=== PATIENT | female | born 1985 | race Caucasian/White ===

== ENCOUNTER 2020-08-08 20:01 | Emergency (ER) | payer OTHER, SELFPAY ==
[2020-08-08 20:05] VITALS: BP 165/79; PULSE 99; RESP 18; TEMP 36.7; O2SAT 100; BMI 49.3
[2020-08-08 20:30] LABS: RBC Urine 0-1/HPF (0-5/HPF); Squamous Epithelial Cell Urine 1-5 /HPF (0-5/HPF); WBC Urine 5-10/HPF (0-5/HPF)
[2020-08-08 20:31] LABS: Amorphous Sediment Urine 1+; Bacteria Urine Few (2-10); Culture Indicated Urine Specimen Cultured
--- NOTE | 2020-08-08 20:31 | ED.ABDPAIN ---
HPI - Abdominal Pain General Chief Complaint: Abdominal Pain Stated Complaint: ABD PAIN Time Seen by Provider: 08/08/20 20:03 Source: patient Mode of arrival: Ambulatory Limitations: no limitations History of Present Illness HPI narrative: 34-year-old female nonsmoker presents with a chief complaint of any weeks, if not months of upper abdominal pain. She denies any provocation, palliation or radiation. She states that she has episodes multiple times daily and which she can feel and see spasming and hardening of her upper abdomen which is associated with pain and some nausea. She states it is worse today. She is not dizzy nor weak or lightheaded. She denies any fever or chills. She has had no nausea, vomiting or diarrhea. She denies any relationship with eating or drinking. Her last menstrual period was prior to miscarriage a few months ago, she states she has not had a normal cycle since. She denies any vaginal bleeding, discharge, dysuria, frequency or urgency. MD complaint: abdominal pain Onset (ago): month(s) Pain Consistency: intermittent Location: periumbilical Severity: moderate Severity scale (1-10): 8 Quality: cramping Radiation: epigastric Migration to: no migration Relieving factors: nothing Exacerbating factors: nothing Associated symptoms: denies other symptoms Related Data Allergies Allergy/AdvReac Type Severity Reaction Status Date / Time No Known Drug Allergies Allergy Verified 08/08/20 20:17 Review of Systems Constitutional Constitutional: Denies chills, Denies fatigue, Denies fever(s), Denies frequent falls, Denies lethargy and Denies weakness Eyes Eyes: Denies change in vision, Denies eye discharge, Denies irritation and Denies loss of vision ENT Ears, Nose, Mouth, and Throat: Denies change in voice, Denies dizziness, Denies neck pain, Denies sore throat and Denies throat swelling Cardiovascular Cardiovascular: Denies chest pain, Denies irregular heart rhythm, Denies lightheadedness, Denies palpitations, Denies dyspnea, Denies dyspnea on exertion and Denies orthopnea Respiratory Respiratory: Denies cough, Denies dyspnea, Denies dyspnea on exertion and Denies wheezing Gastrointestinal Gastrointestinal: Reports abdominal pain, Denies change in bowel habits, Denies diarrhea, Denies nausea and Denies vomiting Musculoskeletal Musculoskeletal: Denies neck pain and Denies numbness Integumentary/Breasts Skin/Breast: Denies pruritus, Denies erythema, Denies rash and Denies wounds Neurologic Neurologic: Denies behavioral changes, Denies confusion, Denies dizziness, Denies frequent falls, Denies loss of vision, Denies numbness and Denies weakness Psychiatric Psychiatric: Denies anxiety, Denies behavioral changes, Denies confusion, Denies depression, Denies homicidal ideation and Denies suicidal ideation Endocrine Endocrine: Denies fatigue, Denies flushing and Denies palpitations Hematologic/Lymphatic Hematologic/Lymphatic: Denies easy bruising Allergic/Immunologic Allergic/Immunologic: Denies urticaria, Denies throat swelling and Denies wheezing Patient History Social History Smoking Status: Never smoker Smoking Status: Never smoker alcohol intake frequency: 0-2 drinks per day Substance Use Type: does not use Exam Narrative Exam Narrative: GENERAL: [34] year old patient appears stated age. Well-nourished, well-developed patient, in mild distress. HEAD: Atraumatic. Normocephalic. EYES: Pupils equal round and reactive. Extraocular motions intact. No scleral icterus. No injection or drainage. ENT: Nose without bleeding, purulent drainage. Throat without erythema, tonsillar hypertrophy or exudate. Airway patent. NECK: Trachea midline. Non tender CARDIOVASCULAR: Regular rate and rhythm without murmurs, gallops, or rubs. RESPIRATORY: Clear to auscultation. Breath sounds equal bilaterally. No wheezes, rales, or rhonchi. GASTROINTESTINAL: Abdomen soft, non-tender, nondistended. EXTREMITIES: No edema or joint tenderness. BACK: Nontender without deformity or crepitance. No flank tenderness. NEURO: AOx3. SKIN: No rash or erythema of visible areas Initial Vital Signs Initial Vital Signs: Vital Signs Temperature 98.1 F 08/08/20 20:05 Pulse Rate 99 H 08/08/20 20:05 Respiratory Rate 18 08/08/20 20:05 Blood Pressure 165/79 H 08/08/20 20:05 Pulse Oximetry 100 08/08/20 20:05 Course Course Course Narrative: while discussing discharge paperwork patient states it happens with eating and drinking, which is in contrast with what she had said originally. This raises terri suspiscion of esophageal spasm or GERD and the like. I added discussion about this to my paperwork. Other diagnoses such as biliary disease, pancreatitis, bowel obstruction and other were considered, but thought unlikely given lack of findings on labs or imaging. REturn precautions given and questions have been answered to her apparent satisfaction Orders Ordered: ED Orders 08/08/20 19:14 Urine Culture Stat Urine Microscopic Stat 08/08/20 20:50 Complete Blood Count AUTO DIFF Stat Test Serum,Qual Stat 08/08/20 21:15 Comprehensive Metabolic Panel Stat 08/08/20 21:28 CT abdomen pelvis w con Stat Discontinued Medications Acetaminophen (Acetaminophen 325 Mg Tablet) 650 mg PO NOW ONE Stop: 08/08/20 22:54 Last Admin: 08/08/20 22:56 Dose: 650 mg Documented by: GEORGIANA Hydrocodone Bitart/Acetaminophen (Hydrocodone/Acet 5/325 Prepack) 1 bottle MISC SEEINSTR ONE Stop: 08/08/20 23:39 Last Admin: 08/08/20 23:47 Dose: 1 bottle Documented by: GEORGIANA Sodium Chloride (Normal Saline 0.9%) 1,000 mls @ 1,000 mls/hr IV BOLUS ONE Stop: 08/08/20 21:14 Last Infusion: 08/08/20 21:52 Dose: 0 mls/hr Documented by: Admin: 08/08/20 20:56 Dose: 1,000 mls/hr Documented by: GILLIAN Ondansetron HCl (Ondansetron 4 Mg Odt Prepack) 1 bottle MISC SEEINSTR ONE Stop: 08/08/20 23:39 Last Admin: 08/08/20 23:47 Dose: 1 bottle Documented by: GEORGIANA Pantoprazole Sodium (Pantoprazole 40 Mg Vial) 40 mg IV NOW ONE Stop: 08/08/20 20:16 Last Admin: 08/08/20 20:56 Dose: 40 mg Documented by: GILLIAN Vital Signs Vital signs: Vital Signs - 8 hr 08/08/20 20:05 08/08/20 23:55 Temperature 98.1 F 98 F Pulse Rate 99 H 78 Respiratory Rate 18 18 Blood Pressure 165/79 H 130/76 Pulse Oximetry 100 98 MDM - Abdominal Pain Lab Data Result diagrams: 08/08/20 20:50 08/08/20 21:15 Labs: Lab Results 08/08/20 08/08/2021 Range/Units 19:14 20:50 20:50 WBC 15.5 H (4.5-11.0) X10^3/uL RBC 5.03 (4.0-5.2) X10^6/uL Hgb 14.0 (12.0-16.0) g/dL Hct 42.2 (36-46) % MCV 84.0 (80-100) fL MCH 27.9 (26-34) PG MCHC 33.2 (30-36) % RDW 15.1 H (11.6-14.8) % Plt Count 298 (150-400) X10^3/uL Neut % (Auto) 62.1 (50-75) % Lymph % (Auto) 29.5 (25-40) % [place] % (Auto) 6.9 (3-14) % Eos % (Auto) 1.0 L (2-4) % Baso % (Auto) 0.5 (0-2) % Neut # (Auto) 9700 H (8911-9726) /uL Lymph # (Auto) 4600 H (5145-9564) /uL [place] # (Auto) 1100 H (0-900) /uL Eos # (Auto) 200 (0-450) /uL Baso # (Auto) 100 (0-100) /uL Sodium (137-145) mmol/L Potassium (3.4-5.1) mmol/L Chloride (98-107) mmol/L Carbon Dioxide (22-32) mmol/L BUN (7-17) mg/dL Creatinine (0.52-1.04) mg/dL Estimated GFR (>60) mL/min BUN/Creatinine Ratio (6-22) Glucose (70-100) mg/dL Calcium (8.4-10.2) mg/dL Total Bilirubin (0.2-1.3) mg/dL AST (14-36) IU/L ALT (<35) IU/L Alkaline Phosphatase (38-126) U/L Total Protein (6.3-8.2) g/dL Albumin (3.5-5.0) g/dL Globulin (1.7-4.1) g/dL Albumin/Globulin Ratio (1.0-2.8) Serum , Qual Negative (Negative) Urine RBC 0-1/hpf (0-5/HPF) Urine WBC 5-10/hpf H (0-5/HPF) Ur Squamous Epith Cells 1-5 /hpf (0-5/HPF) Amorphous Sediment 1+ Urine Bacteria Few (2-10) H (None) Ur Culture Indicated? Specimen cultured 08/08/20 Range/Units 21:15 WBC (4.5-11.0) X10^3/uL RBC (4.0-5.2) X10^6/uL Hgb (12.0-16.0) g/dL Hct (36-46) % MCV (80-100) fL MCH (26-34) PG MCHC (30-36) % RDW (11.6-14.8) % Plt Count (150-400) X10^3/uL Neut % (Auto) (50-75) % Lymph % (Auto) (25-40) % [place] % (Auto) (3-14) % Eos % (Auto) (2-4) % Baso % (Auto) (0-2) % Neut # (Auto) (2244-6749) /uL Lymph # (Auto) (9864-9608) /uL [place] # (Auto) (0-900) /uL Eos # (Auto) (0-450) /uL Baso # (Auto) (0-100) /uL Sodium 138 (137-145) mmol/L Potassium 4.7 (3.4-5.1) mmol/L Chloride 103 (98-107) mmol/L Carbon Dioxide 32 (22-32) mmol/L BUN 13 (7-17) mg/dL Creatinine 0.59 (0.52-1.04) mg/dL Estimated GFR > 60.0 (>60) mL/min BUN/Creatinine Ratio 22.0 (6-22) Glucose 105 H (70-100) mg/dL Calcium 10.1 (8.4-10.2) mg/dL Total Bilirubin 0.4 (0.2-1.3) mg/dL AST 30 (14-36) IU/L ALT 30 (<35) IU/L Alkaline Phosphatase 82 (38-126) U/L Total Protein 8.4 H (6.3-8.2) g/dL Albumin 4.3 (3.5-5.0) g/dL Globulin 4.1 (1.7-4.1) g/dL Albumin/Globulin Ratio 1.0 (1.0-2.8) Serum , Qual (Negative) Urine RBC (0-5/HPF) Urine WBC (0-5/HPF) Ur Squamous Epith Cells (0-5/HPF) Amorphous Sediment Urine Bacteria (None) Ur Culture Indicated? Point of care testing: Point of Care Testing Test Results Negative Urine Dip Bedside Urine Glucose Negative Bedside Urine Bilirubin - Negative Bedside Urine Ketone - Negative Urine Specific [place] 1.015 Bedside Urine Occult Blood + Bedside Urine pH 6.0 Bedside Urine Protein - Negative Bedside Urine Urobilinogen - Negative Bedside Urine Nitrite - Negative Bedside Urine Leukocytes - Negative Esterase Imaging Data CT scan - abdomen/pelvis: Radiologist's Impression: No acute intraabdominal or pelvic findings. No bowel obstruction. No renal obstruction Discharge Plan Departure Patient Disposition: Home Clinical Impression: Acute epigastric pain Instructions: DI for Epigastric Pain Activity Restrictions/Additional Instructions: *You have been diagnosed with [epigastric pain. He did have a slight bump in your white blood cell count but remaining labs are reassuring. Imaging demonstrated no significant findings. The pain in association with eating and drinking raises question about problems with her esophagus such as spasm or reflux.] *What to do: *Take me: [id number] antacid such as Protonix or Nexium dications as directed *Follow up with your primary care provider in 2-3 days, call for an appointment. Let them know you were seen in the Emergency Department and that we ask that you be seen in follow up *Return to ER if you should have any new, worsening or concerning symptoms, such as [increased pain, persistent vomiting, fever over 101 F or other bothersome symptoms] Referrals: Chiquita Espinosa ARNP [Primary Care Provider] -
[2020-08-08] MEDS: SODIUM CHLORIDE 0.9% 1,000 ML 1000 ML IV (20:56)
[2020-08-08] MEDS: PANTOPRAZOLE 40 MG VIAL IV (20:56)
[2020-08-08 20:58] LABS: Add Manual Diff / Slide Review NO; Basophils Absolute Auto 100 /uL (0-100); Basophils Percent Auto 0.5 % (0-2); Eosinophils Absolute Auto 200 /uL (0-450); Hematocrit 42.2 % (36-46); Lymphocytes Absolute Auto 4600 /uL (1100-4500); Lymphocytes Percent Auto 29.5 % (25-40); Mean Corpuscular HGB Conc 33.2 % (30-36); Mean Corpuscular Hemoglobin 27.9 PG (26-34); Monocytes Absolute Auto 1100 /uL (0-900); Monocytes Percent Auto 6.9 % (3-14); Neutrophils Absolute Auto 9700 /uL (1500-7000); Neutrophils Percent Auto 62.1 % (50-75); Platelet Count 298 X10^3/uL (150-400); Red Blood Cell Count 5.03 X10^6/uL (4.0-5.2); Red Cell Distribution Width 15.1 % (11.6-14.8); White Blood Cell Count 15.5 X10^3/uL (4.5-11.0)
[2020-08-08 21:16] LABS: Pregnancy Test Serum,Qual Negative (Negative)
--- NOTE | 2020-08-08 21:28 | DI.CT.S_ITS ---
PROCEDURE: CT ABDOMEN PELVIS W CON INDICATIONS: severe upper abdominal pain, leukocytosis TECHNIQUE: After the administration of oral and intravenous contrast, 5 mm thick sections acquired from the diaphragms to the symphysis. 5 mm thick coronal and sagittal reformats were performed. For radiation dose reduction, the following was used: automated exposure control, adjustment of mA and/or kV according to patient size. COMPARISON: None. FINDINGS: Image quality: Excellent. ABDOMEN: Lung bases: Lung bases are clear. Heart size is normal. Tiny hiatal hernia. Solid organs: There is hepatic steatosis. Liver is normal in size and enhancement. Gallbladder is surgically absent. Biliary system is non-dilated. Pancreas enhances normally. Spleen is normal in size and enhancement. No adrenal nodules. Kidneys are normal in size and enhancement, without hydronephrosis. Peritoneum and bowel: Stomach, small bowel, and colon loops are normal in caliber and wall thickness. Normal appendix. A few colonic diverticula are present. No diverticulitis. No free fluid or air. Nodes and vessels: No retroperitoneal or mesenteric adenopathy. Aorta and inferior vena cava are normal in caliber. Miscellaneous: A small fat containing umbilical hernia is noted. In addition, there is a small fat containing ventral hernia at midline in the pre pubic area. PELVIS: Genitourinary: Bladder wall thickness is normal. Uterus and ovaries are normal. No free-fluid in pelvis. Miscellaneous: No inguinal hernias or adenopathy. Bones: No suspicious bony lesions. No vertebral body compression fractures. IMPRESSION: 1. No acute abnormalities in abdomen or pelvis. No significant discrepancy with the shift coordinator radiology preliminary report. Dictated by: Toro Anderson M.D. on 08/09/2020 at 8:22 Approved by: Toro Anderson M.D. on 08/09/2020 at 8:27
[2020-08-08 21:37] LABS: Alanine Aminotransferase 30 IU/L (<35); Albumin 4.3 g/dL (3.5-5.0); Alkaline Phosphatase 82 U/L (38-126); Aspartate Aminotransferase 30 IU/L (14-36); Bilirubin Total 0.4 mg/dL (0.2-1.3); Blood Urea Nitrogen 13 mg/dL (7-17); Calcium 10.1 mg/dL (8.4-10.2); Carbon Dioxide 32 mmol/L (22-32); Chloride 103 mmol/L (98-107); Estimated Glomerular Filt Rate > 60.0 mL/min (>60); Globulin 4.1 g/dL (1.7-4.1); Glucose 105 mg/dL (70-100); Sodium 138 mmol/L (137-145); Total Protein 8.4 g/dL (6.3-8.2)
[2020-08-08 21:40] LABS: HEMOLYSIS 83 (0-50)
[2020-08-08 21:41] LABS: Potassium 4.7 mmol/L (3.4-5.1)
[2020-08-08] MEDS: ACETAMINOPHEN 325 MG TABLET 650 MG PO (22:56)
[2020-08-08] MEDS: ONDANSETRON 4 MG ODT PREPACK 1 BOTTLE MISC (23:47)
[2020-08-08] MEDS: HYDROCODONE/ACET 5/325 PREPACK 1 BOTTLE MISC (23:47)
[2020-08-08 23:55] VITALS: BP 130/76; PULSE 78; RESP 18; TEMP 36.6; O2SAT 98
== END 2020-08-08 23:56 | disposition home or self-care (01) ==
PROVIDERS: Emergency Provider Emergency Medicine; PCP Nurse Practitioner Family
DX: R10.13 Epigastric pain (principal); D72.829 Elevated white blood cell count, unspecified
CPT/HCPCS: 36415; 74177; 80053; 81003; 81015; 81025; 84703; 85025; 87086; 96361; 96374; 99284; C9113; Q9967

== ENCOUNTER 2020-09-11 03:36 | Emergency (ER) | payer OTHER, SELFPAY ==
--- NOTE | 2020-09-11 03:38 | ED.FEMALEGU ---
HPI - Female Genitourinary General Chief complaint: Urogenital-Female Stated complaint: Blood in urine Time Seen by Provider: 09/11/20 03:37 Source: patient and family Mode of arrival: Ambulatory Limitations: no limitations History of Present Illness HPI Narrative: 35-year-old female nonsmoker without any significant medical history presents with her in the chief complaint of urinary frequency, urgency, burning and hematuria over the course of the day. She denies any nausea or vomiting. She denies any fever or shaking chills. She denies any chest pain or shortness of breath. She does have some discomfort that radiates around her left side and complains only of provocation with urination. MD Complaint: dysuria and UTI Onset (ago): hour(s) Female Urogenital Radiation: L Flank Severity: mild Quality: Aching and Burning Relieving factors: none Exacerbating factors: urination Urinary symptoms: Difficulty Urinating, Dysuria, Flank Pain, Hematuria and Urgency Patient : No Associated symptoms: denies other symptoms Related Data Previous Rx's Medication Instructions Recorded sulfamethoxazole-trimethoprim 1 tab PO BID 10 Days #20 tab 09/11/20 [Bactrim DS] Allergies Allergy/AdvReac Type Severity Reaction Status Date / Time No Known Drug Allergies Allergy Verified 08/08/20 20:17 Review of Systems Constitutional Constitutional: Denies chills, Denies fatigue, Denies fever(s), Denies frequent falls, Denies lethargy and Denies weakness Eyes Eyes: Denies change in vision, Denies eye discharge, Denies irritation and Denies loss of vision ENT Ears, Nose, Mouth, and Throat: Denies change in voice, Denies dizziness, Denies neck pain, Denies sore throat and Denies throat swelling Cardiovascular Cardiovascular: Denies chest pain, Denies irregular heart rhythm, Denies lightheadedness, Denies palpitations, Denies dyspnea, Denies dyspnea on exertion and Denies orthopnea Respiratory Respiratory: Denies cough, Denies dyspnea, Denies dyspnea on exertion and Denies wheezing Gastrointestinal Gastrointestinal: Denies abdominal pain, Denies change in bowel habits, Denies diarrhea, Denies nausea and Denies vomiting Genitourinary Genitourinary: Reports dysuria, Reports flank pain and Reports urinary urgency Genitourinary: Reports dysuria, Reports flank pain and Reports urinary urgency Musculoskeletal Musculoskeletal: Denies neck pain and Denies numbness Integumentary/Breasts Skin/Breast: Denies pruritus, Denies erythema, Denies rash and Denies wounds Neurologic Neurologic: Denies behavioral changes, Denies confusion, Denies dizziness, Denies frequent falls, Denies loss of vision, Denies numbness and Denies weakness Psychiatric Psychiatric: Denies anxiety, Denies behavioral changes, Denies confusion, Denies depression, Denies homicidal ideation and Denies suicidal ideation Endocrine Endocrine: Denies fatigue, Denies flushing and Denies palpitations Hematologic/Lymphatic Hematologic/Lymphatic: Denies easy bruising Allergic/Immunologic Allergic/Immunologic: Denies urticaria, Denies throat swelling and Denies wheezing Patient History alcohol intake frequency: 0-2 drinks per day Substance Use Type: does not use Exam Narrative Exam Narrative: GENERAL: [35] year old patient appears stated age. Well-nourished, well-developed patient, in mild distress. Resting comfortably HEAD: Atraumatic. Normocephalic. EYES: Pupils equal round and reactive. Extraocular motions intact. No scleral icterus. No injection or drainage. ENT: Nose without bleeding, purulent drainage. Throat without erythema, tonsillar hypertrophy or exudate. Airway patent. NECK: Trachea midline. Non tender CARDIOVASCULAR: Regular rate and rhythm without murmurs, gallops, or rubs. RESPIRATORY: Clear to auscultation. Breath sounds equal bilaterally. No wheezes, rales, or rhonchi. GASTROINTESTINAL: Abdomen soft, minimal suprapubic tenderness, nondistended. EXTREMITIES: No edema or joint tenderness. BACK: Nontender without deformity or crepitance. No flank tenderness. NEURO: AOx3. SKIN: No rash or erythema of visible areas Initial Vital Signs Initial Vital Signs: Vital Signs Temperature 98.2 F 09/11/20 03:46 Pulse Rate 99 H 09/11/20 03:46 Respiratory Rate 17 09/11/20 03:46 Blood Pressure 168/90 H 09/11/20 03:46 Pulse Oximetry 100 09/11/20 03:46 Course Orders Ordered: ED Orders 09/11/20 03:45 Urine Culture Stat Urine Microscopic Stat Discontinued Medications Phenazopyridine HCl (Phenazopyridine 100 Mg Prepack) 1 bottle MISC SEEINSTR ONE Stop: 09/11/20 04:04 Last Admin: 09/11/20 04:07 Dose: 1 bottle Documented by: Trimethoprim/Sulfamethoxazole (Trimeth/Sulfa 160/800 (Ds) Tablet) 1 tab PO NOW ONE Stop: 09/11/20 04:04 Last Admin: 09/11/20 04:07 Dose: 1 tab Documented by: Vital Signs Vital signs: Vital Signs - 8 hr 09/11/20 03:46 Temperature 98.2 F Pulse Rate 99 H Respiratory Rate 17 Blood Pressure 168/90 H Pulse Oximetry 100 MDM - Female Genitourinary Lab Data Labs: Lab Results 09/11/20 Range/Units 03:45 Urine RBC >100/hpf H (0-5/HPF) Urine WBC 5-10/hpf H (0-5/HPF) Ur Squamous Epith Cells 0-1 /hpf (0-5/HPF) Urine Bacteria Few (2-10) H (None) Ur Culture Indicated? Specimen cultured Point of Care Testing Test Results Negative Urine Dip Bedside Urine Glucose Negative Bedside Urine Bilirubin - Negative Bedside Urine Ketone - Negative Urine Specific [place] 1.015 Bedside Urine Occult Blood +++ Bedside Urine pH 6.0 Bedside Urine Protein + 30 Bedside Urine Urobilinogen - Negative Bedside Urine Nitrite - Negative Bedside Urine Leukocytes + 70 Esterase MDM Narrative Medical decision making narrative: Patient with classic UTI symptoms including dysuria, frequency, urgency and hematuria with suprapubic tenderness and minimal radiation around her left side. She denies any colicky nature of her symptoms or severe pain to suggest kidney stone. She is not septic, she is tolerating oral without difficulty and resting comfortably. She has been given return precautions and at questions answered to her apparent satisfaction Discharge Plan Departure Patient Disposition: Home Clinical Impression: Urinary tract infection Qualifiers: Urinary tract infection type: acute pyelonephritis Qualified Code(s): N10 - Acute pyelonephritis Instructions: DI for Kidney Infection Activity Restrictions/Additional Instructions: *You have been diagnosed with [blood in the urine, most likely due to infection] *What to do: *Take medications as directed *Follow up with your primary care provider in 2-3 days, call for an appointment. Let them know you were seen in the Emergency Department and that we ask that you be seen in follow up *Return to ER if you should have any new, worsening or concerning symptoms, such as [increasing, more persistent pain, vomiting, shaking chills or other bothersome symptoms] Prescriptions: New sulfamethoxazole-trimethoprim [Bactrim DS] 800-160 mg tablet 1 tab PO BID 10 Days Qty: 20 RF: 0 Referrals: Chiquita Espinosa ARNP [Primary Care Provider] -
[2020-09-11 03:46] VITALS: BP 168/90; PULSE 99; RESP 17; TEMP 36.8; O2SAT 100; BMI 50.3
[2020-09-11 04:00] LABS: Bacteria Urine Few (2-10); RBC Urine >100/HPF (0-5/HPF); Squamous Epithelial Cell Urine 0-1 /HPF (0-5/HPF)
[2020-09-11 04:01] LABS: WBC Urine 5-10/HPF (0-5/HPF)
[2020-09-11 04:02] LABS: Culture Indicated Urine Specimen Cultured
[2020-09-11] MEDS: PHENAZOPYRIDINE 100 MG PREPACK 1 BOTTLE MISC (04:07)
[2020-09-11] MEDS: TRIMETH/SULFA 160/800 (DS) TABLET 1 TAB PO (04:07)
[2020-09-11 04:29] VITALS: BP 130/80; PULSE 87; RESP 18; O2SAT 99
== END 2020-09-11 04:30 | disposition home or self-care (01) ==
PROVIDERS: Emergency Provider Emergency Medicine; PCP Nurse Practitioner Family
DX: N10 Acute pyelonephritis (principal)
CPT/HCPCS: 81003; 81015; 81025; 87086; 99283

== ENCOUNTER 2020-09-16 18:28 | Emergency (ER) | payer OTHER, SELFPAY ==
--- NOTE | 2020-09-16 19:40 | ED.MALEGU ---
HPI - Male Genitourinary General Chief complaint: Urogenital-Female Stated complaint: PEEING BLOOD SIDE PAIN TO BACK Time Seen by Provider: 09/16/20 18:33 Source: patient and family Mode of arrival: Ambulatory Limitations: no limitations History of Present Illness HPI Narrative: 35-year-old female nonsmoker with history of chronic epigastric pain presents with her in the chief complaint of worsening dysuria, frequency, urgency now with hematuria and radiation to her right upper back. She was seen and evaluated by myself a few days ago and had classic UTI symptoms and was found to have a urinary tract infection and was started on Bactrim. She has been taking the medications as directed and presents tonight under the above-stated scenario. She denies any fever or chills. She has had no nausea, vomiting or diarrhea. She denies runny nose, sore throat or cough. She had no chest pain or shortness of breath. Related Data Previous Rx's Medication Instructions Recorded sulfamethoxazole-trimethoprim 1 tab PO BID 10 Days #20 tab 09/11/20 [Bactrim DS] cefpodoxime 200 mg PO BID 10 Days #20 tab 09/16/20 hydrocodone-acetaminophen 1 tab PO Q4-6H PRN #10 tab 09/16/20 ondansetron 4 mg PO TID-QID PRN #10 tab 09/16/20 Allergies Allergy/AdvReac Type Severity Reaction Status Date / Time No Known Drug Allergies Allergy Verified 08/08/20 20:17 Review of Systems Constitutional Constitutional: Denies chills, Denies fatigue, Denies fever(s), Denies frequent falls, Denies lethargy and Denies weakness Eyes Eyes: Denies change in vision, Denies eye discharge, Denies irritation and Denies loss of vision ENT Ears, Nose, Mouth, and Throat: Denies change in voice, Denies dizziness, Denies neck pain, Denies sore throat and Denies throat swelling Cardiovascular Cardiovascular: Denies chest pain, Denies irregular heart rhythm, Denies lightheadedness, Denies palpitations, Denies dyspnea, Denies dyspnea on exertion and Denies orthopnea Respiratory Respiratory: Denies cough, Denies dyspnea, Denies dyspnea on exertion and Denies wheezing Gastrointestinal Gastrointestinal: Denies abdominal pain, Denies change in bowel habits, Denies diarrhea, Denies nausea and Denies vomiting Genitourinary Genitourinary: Reports dysuria Genitourinary: Reports difficulty voiding and Reports dysuria Musculoskeletal Musculoskeletal: Denies neck pain and Denies numbness Integumentary/Breasts Skin/Breast: Denies pruritus, Denies erythema, Denies rash and Denies wounds Neurologic Neurologic: Denies behavioral changes, Denies confusion, Denies dizziness, Denies frequent falls, Denies loss of vision, Denies numbness and Denies weakness Psychiatric Psychiatric: Denies anxiety, Denies behavioral changes, Denies confusion, Denies depression, Denies homicidal ideation and Denies suicidal ideation Endocrine Endocrine: Denies fatigue, Denies flushing and Denies palpitations Hematologic/Lymphatic Hematologic/Lymphatic: Denies easy bruising Allergic/Immunologic Allergic/Immunologic: Denies urticaria, Denies throat swelling and Denies wheezing Patient History Social History Smoking Status: Never smoker Smoking Status: Never smoker alcohol intake frequency: 0-2 drinks per day Substance Use Type: does not use Exam Narrative Exam Narrative: GENERAL: [35] year old patient appears stated age. Well-nourished, well-developed patient, in mild distress. Tearful HEAD: Atraumatic. Normocephalic. EYES: Pupils equal round and reactive. Extraocular motions intact. No scleral icterus. No injection or drainage. ENT: Nose without bleeding, purulent drainage. Throat without erythema, tonsillar hypertrophy or exudate. Airway patent. NECK: Trachea midline. Non tender CARDIOVASCULAR: Regular rate and rhythm without murmurs, gallops, or rubs. RESPIRATORY: Clear to auscultation. Breath sounds equal bilaterally. No wheezes, rales, or rhonchi. GASTROINTESTINAL: Abdomen soft, mild suprapubic pain, nondistended. EXTREMITIES: No edema or joint tenderness. BACK: Nontender without deformity or crepitance. Right CVA tenderness NEURO: AOx3. SKIN: No rash or erythema of visible areas Initial Vital Signs Initial Vital Signs: Vital Signs Temperature 98.1 F 09/16/20 19:47 Pulse Rate 82 09/16/20 19:47 Respiratory Rate 18 09/16/20 19:47 Blood Pressure 166/94 H 09/16/20 19:47 Pulse Oximetry 100 09/16/20 19:47 Course Orders Ordered: ED Orders 09/16/20 21:18 Complete Blood Count AUTO DIFF Stat Comprehensive Metabolic Panel Stat 09/16/20 21:26 US renal complete Stat 09/16/20 21:35 Blood Culture Stat Discontinued Medications Hydrocodone Bitart/Acetaminophen (Hydrocodone/Acet 5/325 Prepack) 1 bottle MISC SEEINSTR ONE Stop: 09/16/20 23:02 Last Admin: 09/16/20 23:07 Dose: 1 bottle Documented by: ELIZABETH Sodium Chloride (Normal Saline 0.9%) 1,000 mls @ 1,000 mls/hr IV BOLUS ONE Stop: 09/16/20 21:50 Last Infusion: 09/16/20 23:12 Dose: 0 mls/hr Documented by: Admin: 09/16/20 21:22 Dose: 1,000 mls/hr Documented by: ELIZABETH Ceftriaxone Sodium/Dextrose (Rocephin) 1 gm in 50 mls @ 100 mls/hr IV NOW ONE Stop: 09/16/20 21:56 Last Infusion: 09/16/20 23:12 Dose: 0 mls/hr Documented by: Admin: 09/16/20 21:30 Dose: 100 mls/hr Documented by: ELIZABETH Ondansetron HCl (Ondansetron 4 Mg Odt Prepack) 1 bottle MISC SEEINSTR ONE Stop: 09/16/20 23:02 Last Admin: 09/16/20 23:07 Dose: 1 bottle Documented by: ELIZABETH Phenazopyridine HCl (Phenazopyridine 100 Mg Prepack) 1 bottle MISC SEEINSTR ONE Stop: 09/16/20 23:19 Last Admin: 09/16/20 23:24 Dose: 1 bottle Documented by: ELIZABETH Vital Signs Vital signs: Vital Signs - 8 hr 09/16/20 22:50 09/16/20 22:51 Pulse Rate 84 84 Blood Pressure 119/68 Pulse Oximetry 99 98 MDM - Male Genitourinary Lab Data Result diagrams: 09/16/20 21:18 09/16/20 21:18 Labs: Lab Results 09/16/20 09/16/20 09/16/20 Range/Units 19:56 21:18 21:18 WBC 13.9 H (4.5-11.0) X10^3/uL RBC 4.40 (4.0-5.2) X10^6/uL Hgb 12.4 (12.0-16.0) g/dL Hct 36.7 (36-46) % MCV 83.3 (80-100) fL MCH 28.3 (26-34) PG MCHC 33.9 (30-36) % RDW 14.7 (11.6-14.8) % Plt Count 300 (150-400) X10^3/uL Neut % (Auto) 65.2 (50-75) % Lymph % (Auto) 25.9 (25-40) % [place] % (Auto) 6.7 (3-14) % Eos % (Auto) 1.1 L (2-4) % Baso % (Auto) 1.1 (0-2) % Neut # (Auto) 9100 H (9331-3909) /uL Lymph # (Auto) 3600 (2076-1647) /uL [place] # (Auto) 900 (0-900) /uL Eos # (Auto) 200 (0-450) /uL Baso # (Auto) 200 H (0-100) /uL Sodium 139 (137-145) mmol/L Potassium 3.9 (3.4-5.1) mmol/L Chloride 105 (98-107) mmol/L Carbon Dioxide 27 (22-32) mmol/L BUN 13 (7-17) mg/dL Creatinine 0.71 (0.52-1.04) mg/dL Estimated GFR > 60.0 (>60) mL/min BUN/Creatinine Ratio 18.3 (6-22) Glucose 104 H (70-100) mg/dL Calcium 9.6 (8.4-10.2) mg/dL Total Bilirubin 0.2 (0.2-1.3) mg/dL AST 30 (14-36) IU/L ALT 35 H (<35) IU/L Alkaline Phosphatase 85 (38-126) U/L Total Protein 7.6 (6.3-8.2) g/dL Albumin 4.1 (3.5-5.0) g/dL Globulin 3.5 (1.7-4.1) g/dL Albumin/Globulin Ratio 1.2 (1.0-2.8) Urine Color Yellow Urine Appearance Sl cloudy Urine pH 7.0 (4.5-8.0) Ur Specific [place] 1.015 (1.000-1.035) Urine Protein Negative (Negative) Urine Glucose (UA) Negative (Negative) g/dL Urine Ketones Negative (NEGATIVE) Urine Occult Blood 1+ H (Negative) Urine Nitrate Negative (Negative) Urine Bilirubin Negative (NEGATIVE) Urine Urobilinogen 0.2 (0.2) E.U./dL Ur Leukocyte Esterase 2+ H (NEGATIVE) Urine RBC 1-5/hpf D (0-5/HPF) Urine WBC 30-100/hpf H (0-5/HPF) Ur Squamous Epith Cells 1-5 /hpf (0-5/HPF) Amorphous Sediment 1+ Urine Bacteria Few (2-10) H (None) Ur Culture Indicated? Specimen cultured Imaging Data Renal US: Radiologist's Impression: No [place] or other abnormal findings MDM Narrative Medical decision making narrative: Patient is not septic, discomfort is well controlled. No evidence of obstructive stone based on ultrasound. Patient is given Rocephin here and antibiotic is changed. She is given extensive return precautions and has had questions answered to her apparent satisfaction Discharge Plan Departure Patient Disposition: Home Clinical Impression: Pyelonephritis Instructions: DI for Kidney Infection Activity Restrictions/Additional Instructions: *You have been diagnosed with [right-sided kidney infection] *What to do: *Take medications as directed: Please stop these sulfamethoxazole trimethoprim (Bactrim) that your given the other day. I've written a new antibiotic as the other clearly wasn't working. Other prescriptions were sent to [facility] in [place] *Follow up with your primary care provider in 2-3 days, call for an appointment. Let them know you were seen in the Emergency Department and that we ask that you be seen in follow up *Return to ER if you should have any new, worsening or concerning symptoms Prescriptions: New cefpodoxime 200 mg tablet 200 mg PO BID 10 Days Qty: 20 RF: 0 hydrocodone-acetaminophen 5-325 mg tablet 1 tab PO Q4-6H PRN (Reason: pain) Qty: 10 RF: 0 ondansetron 4 mg tablet,disintegrating 4 mg PO TID-QID PRN (Reason: nausea and vomiting) Qty: 10 RF: 0 No Action sulfamethoxazole-trimethoprim [Bactrim DS] 800-160 mg tablet 1 tab PO BID 10 Days Qty: 20 RF: 0 Referrals: Loura,Jose, MD [Physician] - Chiquita Espinosa ARNP [Primary Care Provider] -
[2020-09-16 19:47] VITALS: BP 166/94; PULSE 82; RESP 18; TEMP 36.7; O2SAT 100; BMI 50.3
[2020-09-16 20:09] LABS: Appearance Urine UA SL CLOUDY; Bilirubin Urine UA NEGATIVE (NEGATIVE); Color Urine UA YELLOW; Glucose Urine UA NEGATIVE (Negative); Ketones Urine UA NEGATIVE (NEGATIVE); Leukocyte Esterase Urine UA 2+ (NEGATIVE); Nitrite Urine UA NEGATIVE (Negative); Occult Blood Urine UA 1+ (Negative); Protein Urine UA NEGATIVE (Negative); Specific Gravity Urine UA 1.015 (1.000-1.035); Urobilinogen Urine UA 0.2 E.U./dL (0.2)
[2020-09-16 20:32] LABS: RBC Urine 1-5/HPF (0-5/HPF)
[2020-09-16 20:33] LABS: Amorphous Sediment Urine 1+; Bacteria Urine Few (2-10); Culture Indicated Urine Specimen Cultured; Squamous Epithelial Cell Urine 1-5 /HPF (0-5/HPF); WBC Urine 30-100/HPF (0-5/HPF)
[2020-09-16 20:49] VITALS: PULSE 88; O2SAT 98
[2020-09-16 20:50] VITALS: BP 136/70; O2SAT 99
[2020-09-16] MEDS: SODIUM CHLORIDE 0.9% 1,000 ML 1000 ML IV (21:22)
--- NOTE | 2020-09-16 21:26 | DI.US.S_ITS ---
PROCEDURE: US RENAL COMPLETE INDICATIONS: FLANK PAIN, HEMATURIA TECHNIQUE: Real-time scanning was performed of the kidneys and bladder, with image documentation. COMPARISON: [facility], CT, CT ABDOMEN PELVIS W CON, 08/08/2020, 21:52. FINDINGS: Kidneys: Kidneys are normal in size. Right kidney measures 12.1 cm long; left kidney measures 10.9 cm long. Right renal cortical thickness is 1.5 cm; left renal cortical thickness is 1.2 cm. Renal cortical echotexture is normal. No hydronephrosis or nephrolithiasis. No suspicious solid mass lesions. Bladder: Not distended and poorly evaluated Miscellaneous: No free pelvic fluid. IMPRESSION: Negative for hydronephrosis. No shadowing stones are seen. Decompressed bladder. Note: No significant discrepancy from the preliminary report. Dictated by: Nicko Redd M.D. on 09/17/2020 at 7:44 Approved by: Nicko Redd M.D. on 09/17/2020 at 7:45
[2020-09-16 21:29] LABS: Add Manual Diff / Slide Review NO; Basophils Absolute Auto 200 /uL (0-100); Basophils Percent Auto 1.1 % (0-2); Eosinophils Absolute Auto 200 /uL (0-450); Eosinophils Percent Auto 1.1 % (2-4); Hematocrit 36.7 % (36-46); Hemoglobin 12.4 g/dL (12.0-16.0); Lymphocytes Absolute Auto 3600 /uL (1100-4500); Lymphocytes Percent Auto 25.9 % (25-40); Mean Corpuscular HGB Conc 33.9 % (30-36); Mean Corpuscular Hemoglobin 28.3 PG (26-34); Mean Corpuscular Volume 83.3 fL (80-100); Monocytes Absolute Auto 900 /uL (0-900); Monocytes Percent Auto 6.7 % (3-14); Neutrophils Absolute Auto 9100 /uL (1500-7000); Neutrophils Percent Auto 65.2 % (50-75); Platelet Count 300 X10^3/uL (150-400); Red Cell Distribution Width 14.7 % (11.6-14.8); White Blood Cell Count 13.9 X10^3/uL (4.5-11.0)
[2020-09-16] MEDS: CEFTRIAXONE 1 GM/50 ML FROZ.PIGGY IV (21:30)
[2020-09-16 21:39] LABS: Alanine Aminotransferase 35 IU/L (<35); Albumin 4.1 g/dL (3.5-5.0); Albumin Globulin Ratio 1.2 (1.0-2.8); Alkaline Phosphatase 85 U/L (38-126); Aspartate Aminotransferase 30 IU/L (14-36); BUN Creatinine Ratio 18.3 (6-22); Bilirubin Total 0.2 mg/dL (0.2-1.3); Blood Urea Nitrogen 13 mg/dL (7-17); Calcium 9.6 mg/dL (8.4-10.2); Carbon Dioxide 27 mmol/L (22-32); Chloride 105 mmol/L (98-107); Estimated Glomerular Filt Rate > 60.0 mL/min (>60); Globulin 3.5 g/dL (1.7-4.1); Glucose 104 mg/dL (70-100); HEMOLYSIS < 15 (0-50); Potassium 3.9 mmol/L (3.4-5.1); Sodium 139 mmol/L (137-145); Total Protein 7.6 g/dL (6.3-8.2)
[2020-09-16 22:50] VITALS: PULSE 84; O2SAT 99
[2020-09-16 22:51] VITALS: BP 119/68; PULSE 84; O2SAT 98
[2020-09-16] MEDS: ONDANSETRON 4 MG ODT PREPACK 1 BOTTLE MISC (23:07)
[2020-09-16] MEDS: HYDROCODONE/ACET 5/325 PREPACK 1 BOTTLE MISC (23:07)
[2020-09-16] MEDS: PHENAZOPYRIDINE 100 MG PREPACK 1 BOTTLE MISC (23:24)
== END 2020-09-16 23:42 | disposition home or self-care (01) ==
PROVIDERS: Emergency Provider Emergency Medicine; PCP Nurse Practitioner Family
DX: N12 Tubulo-interstitial nephritis, not specified as acute or chronic (principal)
CPT/HCPCS: 36415; 76770; 80053; 81001; 85025; 87040; 87077; 87086; 87186; 96365; 96366; 99284

== ENCOUNTER 2021-06-16 22:49 | Emergency (ER) | payer OTHER, SELFPAY ==
[2021-06-16 23:00] VITALS: PULSE 81; RESP 26; O2SAT 100
[2021-06-16 23:01] VITALS: BP 159/77; PULSE 83; RESP 18; TEMP 36.8; O2SAT 98; BMI 50.3
[2021-06-16 23:02] VITALS: BP 136/64; PULSE 83; RESP 25; O2SAT 100
--- NOTE | 2021-06-16 23:08 | DI.RAD.S_ITS ---
PROCEDURE: XR CHEST 1V INDICATIONS: chest pain TECHNIQUE: One view of the chest was acquired. COMPARISON: None. FINDINGS: Surgical changes and devices: None. Lungs and pleura: Lungs are clear. No pleural effusions or pneumothorax. Mediastinum: Mediastinal contours appear normal. Heart size is normal. Bones and chest wall: No suspicious bony lesions. Overlying soft tissues appear unremarkable. IMPRESSION: No acute cardiopulmonary pathology. Dictated by: Randy Rader M.D. on 06/16/2021 at 23:46 Approved by: Randy Rader M.D. on 06/16/2021 at 23:46
--- NOTE | 2021-06-16 23:20 | ED.CHESTPAIN ---
HPI - Chest Pain General Chief Complaint: Chest Pain Stated Complaint: Left shoulder/arm numbness/Climara .1mg x1 hour Time Seen by Provider: 06/16/21 23:01 Source: patient Mode of arrival: Ambulatory History of Present Illness HPI narrative: 35F nonsmoker with history of cervical cancer and total hysterectomy and B/L oophorectomy last summer has had a variety of symptoms in the aftermath of the surgery but presents today with her due to a few days of anterior chest heaviness and pressure and some tingling in her left arm. She denies any obvious provocation, palliation or radiation of her chest pressure. She is not short of breath and has had no cough. She denies any fever or chills nor nausea or vomiting. She admits to many months of feeling fatigued and ?foggy?. She does take exogenous estrogens but denies any change in dosing for at least a few weeks. She denies recent travel or history of clot. Related Data Previous Rx's Medication Instructions Recorded hydrocodone 5 mg-acetaminophen 325 1 tab PO Q4-6H PRN #10 tab 09/16/20 mg tablet ondansetron 4 mg disintegrating 4 mg PO TID-QID PRN #10 tab 09/16/20 tablet Allergies Allergy/AdvReac Type Severity Reaction Status Date / Time No Known Drug Allergies Allergy Verified 08/08/20 20:17 Review of Systems Review of Systems Narrative: GENERAL: See HPI HEENT: Denies sinus pain, ear pain, sore throat, difficulty swallowing, dizziness. RESPIRATORY: Denies dyspnea, cough, wheezing, hemoptysis, sputum. CARDIOVASCULAR: See HPI GASTROINTESTINAL: See HPI : Denies dysuria, frequency, incontinence, hematuria, urinary retention. MUSCULOSKELETAL: denies weakness, joint pain, or bony pain SKIN: Denies rash, skin lesions, or other NEUROLOGIC: See HPI PSYCHIATRIC: No concerning psychosocial issues. 12 point review of systems is negative except for those stated above Patient History Social History Smoking Status: Never smoker Smoking Status: Never smoker alcohol intake frequency: 0-2 drinks per day Substance Use Type: does not use Exam Narrative Exam Narrative: GENERAL: [35 year old patient appears stated age. Well-developed patient, in mild distress. HEAD: Atraumatic. Normocephalic. EYES: Pupils equal round and reactive. Extraocular motions intact. No scleral icterus. No injection or drainage. ENT: Nose without bleeding, purulent drainage. Throat without erythema, tonsillar hypertrophy or exudate. Airway patent. NECK: Trachea midline. Non tender CARDIOVASCULAR: Regular rate and rhythm without murmurs, gallops, or rubs. RESPIRATORY: Clear to auscultation. Breath sounds equal bilaterally. No wheezes, rales, or rhonchi. GASTROINTESTINAL: Abdomen soft, non-tender, nondistended. EXTREMITIES: No edema or joint tenderness. BACK: Nontender without deformity or crepitance. No flank tenderness. NEURO: AOx3. SKIN: No rash or erythema of visible areas NIH Stroke Scale 1a. LOC: Patient is alert and keenly responsive (0) 1b. LOC Questions: Patient answers both LOC questions accurately (0) 1c. LOC Commands: Patient performs both tasks correctly (0) 2. Best Gaze: Normal (0) 3. Visual: No visual loss (0) 4. Facial palsy: Normal symmetrical movements (0) 5. Motor arm: No drift (0) 6. Motor leg: No drift (0) 7. Limb ataxia: Absent (0) 8. Sensory: Normal (0) 9. Best language: No aphasia; normal (0) 10. Dysarthria: Normal (0) 11. Extinction and inattention: No abnormality (0) NIHSS: 0 Initial Vital Signs Initial Vital Signs: Vital Signs Pulse Rate 81 06/16/21 23:00 Respiratory Rate 26 H 06/16/21 23:00 Pulse Oximetry 100 06/16/21 23:00 Course Orders Ordered: ED Orders 06/16/21 23:00 COVID19 -Nasal swab/Pre-Proc Stat 06/16/21 23:08 XR chest 1V Stat EKG-12 Lead Stat 06/16/21 23:38 Complete Blood Count AUTO DIFF Stat Comprehensive Metabolic Panel Stat Lipase Stat Magnesium Stat Troponin & CK Cardiac Panel Stat 06/17/21 00:02 CT angio chest PE protocol Stat 06/17/21 01:45 Trop I [Troponin I] Stat Discontinued Medications Al Hydrox/Mg Hydrox/Simethicone 20 ml/ Lidocaine HCl 15 ml 0 ml PO NOW ONE Stop: 06/17/21 01:03 Last Admin: 06/17/21 01:31 Dose: 35 ml Documented by: IFEANYI Pantoprazole Sodium (Pantoprazole 40 Mg Vial) 40 mg IV NOW ONE Stop: 06/17/21 01:03 Last Admin: 06/17/21 01:31 Dose: 40 mg Documented by: IFEANYI Reevaluation(s) Reevaluation #1: Patient feels significant improvement symptoms after above-stated therapies Vital Signs Vital signs: Vital Signs - 8 hr 06/16/21 23:00 06/16/21 23:01 06/16/21 23:02 Temperature 98.3 F Pulse Rate 81 83 83 Respiratory Rate 26 H 18 25 H Blood Pressure 159/77 H 136/64 Pulse Oximetry 100 98 100 06/16/21 23:30 06/16/21 23:43 06/17/21 00:00 Temperature Pulse Rate 83 82 83 Respiratory Rate 20 Blood Pressure 128/64 Pulse Oximetry 100 99 98 06/17/21 00:01 06/17/21 00:42 06/17/21 01:00 Temperature Pulse Rate 86 92 H 81 Respiratory Rate 21 28 H Blood Pressure 125/58 L Pulse Oximetry 98 99 98 06/17/21 01:30 06/17/21 02:00 06/17/21 02:30 Temperature Pulse Rate 79 74 72 Respiratory Rate 26 H 20 20 Blood Pressure Pulse Oximetry 98 97 96 06/17/21 02:53 Temperature Pulse Rate 75 Respiratory Rate Blood Pressure 139/67 Pulse Oximetry 98 MDM - Chest Pain Lab Data Result diagrams: 06/16/21 23:38 06/16/21 23:38 Labs: Lab Results 06/16/21 06/16/21 06/16/21 Range/Units 23:00 23:38 23:38 WBC 15.4 H (4.5-11.0) X10^3/uL RBC 4.96 (4.0-5.2) X10^6/uL Hgb 12.8 (12.0-16.0) g/dL Hct 39.2 (36-46) % MCV 79.0 L (80-100) fL MCH 25.8 L (26-34) PG MCHC 32.7 (30-36) % RDW 17.7 H (11.6-14.8) % Plt Count 328 (150-400) X10^3/uL Neut % (Auto) 63.6 (50-75) % Lymph % (Auto) 28.4 (25-40) % [place] % (Auto) 6.0 (3-14) % Eos % (Auto) 1.5 L (2-4) % Baso % (Auto) 0.5 (0-2) % Neut # (Auto) 9800 H (9946-8343) /uL Lymph # (Auto) 4400 (3877-0221) /uL [place] # (Auto) 900 (0-900) /uL Eos # (Auto) 200 (0-450) /uL Baso # (Auto) 100 (0-100) /uL Sodium 140 (137-145) mmol/L Potassium 3.7 (3.4-5.1) mmol/L Chloride 103 (98-107) mmol/L Carbon Dioxide 32 (22-32) mmol/L BUN 12 (7-17) mg/dL Creatinine 0.70 (0.52-1.04) mg/dL Estimated GFR > 60.0 (>60) mL/min BUN/Creatinine Ratio 17.1 (6-22) Glucose 143 H (70-100) mg/dL Calcium 9.9 (8.4-10.2) mg/dL Magnesium 2.0 (1.6-2.3) mg/dL Total Bilirubin 0.3 (0.2-1.3) mg/dL AST 25 (14-36) IU/L ALT 24 (<35) IU/L Alkaline Phosphatase 78 (38-126) U/L Total Creatine Kinase 52 (30-135) U/L CK-MB (CK-2) TNP CK-MB (CK-2) Rel Index TNP Troponin I < 0.012 (0.01-0.034) ng/mL Total Protein 8.3 H (6.3-8.2) g/dL Albumin 4.4 (3.5-5.0) g/dL Globulin 3.9 (1.7-4.1) g/dL Albumin/Globulin Ratio 1.1 (1.0-2.8) Lipase 146 (23-300) U/L SARS-CoV-2 (PCR) Negative (Negative) 06/17/21 Range/Units 02:15 WBC (4.5-11.0) X10^3/uL RBC (4.0-5.2) X10^6/uL Hgb (12.0-16.0) g/dL Hct (36-46) % MCV (80-100) fL MCH (26-34) PG MCHC (30-36) % RDW (11.6-14.8) % Plt Count (150-400) X10^3/uL Neut % (Auto) (50-75) % Lymph % (Auto) (25-40) % [place] % (Auto) (3-14) % Eos % (Auto) (2-4) % Baso % (Auto) (0-2) % Neut # (Auto) (9695-8567) /uL Lymph # (Auto) (2421-3271) /uL [place] # (Auto) (0-900) /uL Eos # (Auto) (0-450) /uL Baso # (Auto) (0-100) /uL Sodium (137-145) mmol/L Potassium (3.4-5.1) mmol/L Chloride (98-107) mmol/L Carbon Dioxide (22-32) mmol/L BUN (7-17) mg/dL Creatinine (0.52-1.04) mg/dL Estimated GFR (>60) mL/min BUN/Creatinine Ratio (6-22) Glucose (70-100) mg/dL Calcium (8.4-10.2) mg/dL Magnesium (1.6-2.3) mg/dL Total Bilirubin (0.2-1.3) mg/dL AST (14-36) IU/L ALT (<35) IU/L Alkaline Phosphatase (38-126) U/L Total Creatine Kinase (30-135) U/L CK-MB (CK-2) CK-MB (CK-2) Rel Index Troponin I < 0.012 (0.01-0.034) ng/mL Total Protein (6.3-8.2) g/dL Albumin (3.5-5.0) g/dL Globulin (1.7-4.1) g/dL Albumin/Globulin Ratio (1.0-2.8) Lipase (23-300) U/L SARS-CoV-2 (PCR) (Negative) Imaging Data CT scan - chest: Radiologist's Impression: [address] [address] [address] Scan Report Signed Patient: Apple Richmond V MR#: [id number] : 1985 Acct:[id number] Age/Sex: 35 / F Date of Service: 06/17/21 Loc: ED Accession Number: [id number] ?? Procedure: CT angio chest PE protocol Ordering Provider: Aries Dykes D.O. PROCEDURE:? CT ANGIO CHEST PE PROTOCOL ? INDICATIONS:? chest pain, cancer, control, tachy ? TECHNIQUE:? After the administration of intravenous contrast, 2 mm thick sections acquired from the pulmonary apices to the posterior costophrenic angles.? 3-dimensional maximum intensity projection (MIP) coronal and sagittal reformats were then acquired through the thorax.? For radiation dose reduction, the following was used:? automated exposure control, adjustment of mA and/or kV according to patient size.? ? COMPARISON:? None. ? FINDINGS:? Image quality:? Excellent.? ? Pulmonary arteries:? Pulmonary arteries are normal in size, and demonstrate no intraluminal filling defects to suggest central pulmonary embolism.? ? Lungs and pleura:? Dependent atelectasis in posterior aspect of bilateral lower lobes are seen.? No pleural effusions or pneumothorax.? Central and peripheral airways are patent.? ? ? Mediastinum:? Heart size is normal, without pericardial effusion.? No mediastinal or hilar adenopathy.? Thoracic aorta is normal in caliber and enhancement.? Esophagus is normal in caliber, without hiatal hernia.? ? Bones and chest wall:? No suspicious bony lesions.? Ribs and thoracic spine appear intact throughout.? Thyroid gland is within normal limits.? No axillary or supraclavicular adenopathy.? ? Abdomen:? Visualized upper abdominal solid organs appear normal in the early arterial phase of enhancement.? There is hepatic steatosis. ? IMPRESSION:? 1. No pulmonary embolism.? No thoracic aortic aneurysm or dissection. 2.? Dependent atelectasis in posterior aspect of bilateral lower lobes.? Bilateral lungs are otherwise clear. 3.? No mediastinal or hilar lymphadenopathy. 4.? Hepatic steatosis. ? ? Dictated by: Randy Rader M.D. on 06/17/2021 at 0:53 ? ? Approved by: Randy Rader M.D. on 06/17/2021 at 0:55 ? MDM Narrative Medical decision making narrative: Multiple etiologies for patient's symptoms considered including: Cardiac ischemia versus pulmonary embolism versus musculoskeletal versus other Patient's symptoms improved over duration of stay with above-stated therapies. Findings and discharge diagnosis discussed with patient/family followed by verbalization of understanding Return precautions discussed with patient/family whom verbalize understanding. Discharge Plan Departure Patient Disposition: Home Clinical Impression: Atypical chest pain Instructions: DI for Atypical Chest Pain Activity Restrictions/Additional Instructions: *You have been diagnosed with [atypical chest pain. You a very reassuring history, physical exam as well as labs and imaging. There is no indication that you are having a heart attack, blood clot or other significant medical issue that would require any specific or immediate intervention at this time *What to do: *Please continue to take your regular medications as directed. [ ] New medication prescriptions sent to your pharmacy: [ ] [ ] New medication written as a paper prescription [x ] No new medications given *Please follow up with your primary care provider in 2-3 days, call for an appointment. Let them know you were seen in the Emergency Department and that we ask that you be seen in follow up. We will electronically transmit a record of today's note if your PCP is in our system *If you do not have a primary care provider please contact the [facility] Resource line at [phone]. They will ask some questions about your medical history and help get you set up with a doctor in the community. *Return to Emergency Department if you should have any new, worsening or concerning symptoms, such as [fever greater than 101 F, shaking chills, worsening pain, persistent vomiting or other bothersome symptoms] Prescriptions: No Action hydrocodone-acetaminophen 5-325 mg tablet 1 tab PO Q4-6H PRN (Reason: pain) Qty: 10 0RF ondansetron 4 mg tablet,disintegrating 4 mg PO TID-QID PRN (Reason: nausea and vomiting) Qty: 10 0RF Referrals: Kennedy Levine DO [Primary Care Provider] -
[2021-06-16 23:30] VITALS: PULSE 83; RESP 20; O2SAT 100
[2021-06-16 23:43] VITALS: BP 128/64; PULSE 82; O2SAT 99
[2021-06-16 23:44] LABS: Add Manual Diff / Slide Review NO; Basophils Absolute Auto 100 /uL (0-100); Basophils Percent Auto 0.5 % (0-2); Eosinophils Absolute Auto 200 /uL (0-450); Eosinophils Percent Auto 1.5 % (2-4); Hematocrit 39.2 % (36-46); Hemoglobin 12.8 g/dL (12.0-16.0); Lymphocytes Absolute Auto 4400 /uL (1100-4500); Lymphocytes Percent Auto 28.4 % (25-40); Mean Corpuscular HGB Conc 32.7 % (30-36); Mean Corpuscular Hemoglobin 25.8 PG (26-34); Monocytes Absolute Auto 900 /uL (0-900); Neutrophils Absolute Auto 9800 /uL (1500-7000); Neutrophils Percent Auto 63.6 % (50-75); Platelet Count 328 X10^3/uL (150-400); Red Blood Cell Count 4.96 X10^6/uL (4.0-5.2); Red Cell Distribution Width 17.7 % (11.6-14.8); White Blood Cell Count 15.4 X10^3/uL (4.5-11.0)
[2021-06-16 23:45] LABS: COVID19 -Nasal RAPID Negative (Negative)
[2021-06-16 23:56] LABS: Alanine Aminotransferase 24 IU/L (<35); Albumin 4.4 g/dL (3.5-5.0); Albumin Globulin Ratio 1.1 (1.0-2.8); Alkaline Phosphatase 78 U/L (38-126); Aspartate Aminotransferase 25 IU/L (14-36); BUN Creatinine Ratio 17.1 (6-22); Bilirubin Total 0.3 mg/dL (0.2-1.3); Blood Urea Nitrogen 12 mg/dL (7-17); Calcium 9.9 mg/dL (8.4-10.2); Carbon Dioxide 32 mmol/L (22-32); Chloride 103 mmol/L (98-107); Creatine Kinase 52 U/L (30-135); Estimated Glomerular Filt Rate > 60.0 mL/min (>60); Globulin 3.9 g/dL (1.7-4.1); Glucose 143 mg/dL (70-100); HEMOLYSIS 18 (0-50); Lipase 146 U/L (23-300); Potassium 3.7 mmol/L (3.4-5.1); Sodium 140 mmol/L (137-145); Total Protein 8.3 g/dL (6.3-8.2)
[2021-06-17] VITALS (8 sets, daily range): BP systolic 125–139; BP diastolic 58–67; PULSE 72–92; RESP 20–28; O2SAT 96–99
--- NOTE | 2021-06-17 00:02 | DI.CT.S_ITS ---
PROCEDURE: CT ANGIO CHEST PE PROTOCOL INDICATIONS: chest pain, cancer, control, tachy TECHNIQUE: After the administration of intravenous contrast, 2 mm thick sections acquired from the pulmonary apices to the posterior costophrenic angles. 3-dimensional maximum intensity projection (MIP) coronal and sagittal reformats were then acquired through the thorax. For radiation dose reduction, the following was used: automated exposure control, adjustment of mA and/or kV according to patient size. COMPARISON: None. FINDINGS: Image quality: Excellent. Pulmonary arteries: Pulmonary arteries are normal in size, and demonstrate no intraluminal filling defects to suggest central pulmonary embolism. Lungs and pleura: Dependent atelectasis in posterior aspect of bilateral lower lobes are seen. No pleural effusions or pneumothorax. Central and peripheral airways are patent. Mediastinum: Heart size is normal, without pericardial effusion. No mediastinal or hilar adenopathy. Thoracic aorta is normal in caliber and enhancement. Esophagus is normal in caliber, without hiatal hernia. Bones and chest wall: No suspicious bony lesions. Ribs and thoracic spine appear intact throughout. Thyroid gland is within normal limits. No axillary or supraclavicular adenopathy. Abdomen: Visualized upper abdominal solid organs appear normal in the early arterial phase of enhancement. There is hepatic steatosis. IMPRESSION: 1. No pulmonary embolism. No thoracic aortic aneurysm or dissection. 2. Dependent atelectasis in posterior aspect of bilateral lower lobes. Bilateral lungs are otherwise clear. 3. No mediastinal or hilar lymphadenopathy. 4. Hepatic steatosis. Dictated by: Randy Rader M.D. on 06/17/2021 at 0:53 Approved by: Randy Rader M.D. on 06/17/2021 at 0:55
[2021-06-17 00:07] LABS: Troponin I < 0.012 ng/mL (0.01-0.034)
--- NOTE | 2021-06-17 00:48 | PC.NURSE ---
Patient became nauseated in CT, vomited and lost control of bladder. Patient declined medication for nausea. Patient provided paper scrubs and disposable underwear.
[2021-06-17] MEDS: MAG HYDROX/ALUMINUM/SIMETH SUS 20 ML, LIDOCAINE VISCOUS 2% 15 ML PO (01:31)
[2021-06-17] MEDS: PANTOPRAZOLE 40 MG VIAL IV (01:31)
[2021-06-17 02:43] LABS: Troponin I < 0.012 ng/mL (0.01-0.034)
== END 2021-06-17 02:55 | disposition home or self-care (01) ==
PROVIDERS: Emergency Provider Emergency Medicine; PCP Family Medicine
DX: R07.89 Other chest pain (principal); R20.2 Paresthesia of skin; Z20.822 Contact with and (suspected) exposure to COVID-19
CPT/HCPCS: 36415; 71045; 71275; 80053; 82550; 83690; 83735; 84484; 85025; 87635; 93005; 93010; 96374; 99284; 99285; C9803; C9113; Q9967

== ENCOUNTER → 2022-03-08 09:05 | Outpatient (CLI) | payer OTHER, SELFPAY ==
--- NOTE | 2022-03-08 | DI.CT.S_ITS ---
PROCEDURE: CT ABDOMEN PELVIS W CON INDICATIONS: Malignant neoplasm of overlapping sites of cervix TECHNIQUE: After the administration of oral and IV contrast, axial sections were acquired from the lung bases to the pubic symphysis. Coronal and sagittal reformats were performed. For radiation dose reduction, the following was used: automated exposure control, adjustment of mA and/or kV according to patient size. COMPARISON: [facility], CT, CT ABDOMEN PELVIS W CON, 08/08/2020, 21:52. FINDINGS: Image quality: Excellent. Lung bases: Unremarkable. Heart: No significant findings. ABDOMEN: Liver: No suspicious focal lesion. Focal fatty infiltration at the falciform ligament, unchanged. Gallbladder: Absent. Biliary ducts: Unremarkable. Pancreas: No peripancreatic fluid collection. Spleen: Unremarkable. Adrenal Glands: No nodule. Kidneys and Ureters: No hydronephrosis. Minimal undulation of the right ureter which appears similar to the prior CT. This could be due to peristalsis. There are clips at the right pelvic brim and right pelvis as well as left pelvis. Stomach and Bowel: Stomach is not distended. No small bowel obstruction. The terminal ileum is prominent, (2/59). There is fluid within the terminal ileum. Normal appendix. No significant diverticulosis. Peritoneum: No abnormal intraperitoneal fluid. No free air. No peritoneal nodularity demonstrated. Ventral Wall: Small umbilical hernia. Abdominal Nodes: No retroperitoneal or mesenteric adenopathy by size criteria. Vessels: Aorta and inferior vena cava are normal in size. PELVIS: Pelvic Organs: Uterus is absent. No mass identified. Bladder: No stone. Pelvic Nodes: No enlarged lymph nodes. Miscellaneous: No inguinal hernias are seen. Mild stranding at the lower pelvic wall midline. It is difficult to exclude small fat containing hernia. Bones: No suspicious lesion. IMPRESSION: 1. No mass or adenopathy identified. No peritoneal nodularity seen. No ascites. 2. The terminal ileum is prominent. Clinical significance of this finding is uncertain. 3. Normal appendix. Dictated by: Bebeto Mayo M.D. on 03/08/2022 at 13:24 Approved by: Bebeto Mayo M.D. on 03/08/2022 at 13:33
== END ==
PROVIDERS: PCP Family Medicine; Referring Provider Registered Nurse Obstetric, High-Risk; Visit Provider Registered Nurse Obstetric, High-Risk
DX: C53.8 Malignant neoplasm of overlapping sites of cervix uteri (principal); G89.29 Other chronic pain; R10.31 Right lower quadrant pain
CPT/HCPCS: 74177; Q9967

== ENCOUNTER 2022-03-08 23:57 | Emergency (ER) | payer OTHER, SELFPAY ==
[2022-03-09 00:03] VITALS: BP 145/74; PULSE 80; RESP 18; TEMP 36.6; O2SAT 100
[2022-03-09] MEDS: diphenhydrAMINE 25 MG TABLET PO (00:19)
[2022-03-09] MEDS: predniSONE 20 MG TABLET 40 MG PO (00:19)
[2022-03-09 00:30] VITALS: PULSE 83; RESP 24; O2SAT 98
--- NOTE | 2022-03-09 00:38 | ED.ALLEREA ---
HPI - Allergic Reaction General Chief complaint: Allergic Reaction Stated complaint: ALLERGIC REACTION Time Seen by Provider: 03/09/22 00:21 Source: patient Mode of arrival: Ambulatory History of Present Illness HPI narrative: 36-year-old female nonsmoker with history of cervical cancer and total hysterectomy and B/L oophorectomy presents to the emergency department with a chief complaint of concern for allergic reaction. She had a CT of her abdomen and pelvis as an outpatient earlier today and had an episode of vomiting soon thereafter. She denies any face, tongue, lip or throat swelling. She denies any trouble breathing or rash and did have 1 episode of diarrhea at some point today. She states that she did not think anything of it but this evening her daughter saw her and stated she had red skin on her face at which point she decided to come and get evaluated for possible allergic reaction. She is had no ongoing GI symptoms and denies any other rash. She has no difficulty in breathing. Related Data Previous Rx's Medication Instructions Recorded hydrocodone 5 mg-acetaminophen 325 1 tab PO Q4-6H PRN pain #10 tabs 09/16/20 mg tablet ondansetron 4 mg disintegrating 4 mg PO TID-QID PRN nausea and 09/16/20 tablet vomiting #10 tabs prednisone 20 mg tablet 20 mg PO DAILY #5 tabs 03/09/22 Allergies Allergy/AdvReac Type Severity Reaction Status Date / Time No Known Drug Allergies Allergy Verified 08/08/20 20:17 Review of Systems Review of Systems Narrative: GENERAL: See HPI HEENT: See HPI RESPIRATORY: See HPI CARDIOVASCULAR: Denies chest pain, palpitations, orthopnea, edema, GASTROINTESTINAL: See HPI : Denies dysuria, frequency, incontinence, hematuria, urinary retention. MUSCULOSKELETAL: denies weakness, joint pain, or bony pain SKIN: Denies rash, skin lesions, or other NEUROLOGIC: Denies weakness, headache, numbness, change in speech, confusion, seizures, incoordination. PSYCHIATRIC: No concerning psychosocial issues. 12 point review of systems is negative except for those stated above Patient History Social History Smoking Status: Never smoker Smoking Status: Never smoker alcohol intake frequency: 0-2 drinks per day Substance Use Type: does not use Exam Narrative Exam Narrative: GENERAL: [36] year old patient appears stated age. Well-developed patient, in mild distress. HEAD: Atraumatic. Normocephalic. EYES: Pupils equal round and reactive. Extraocular motions intact. No scleral icterus. No injection or drainage. ENT: No face, tongue, lip or throat swelling Nose without bleeding, purulent drainage. Throat without erythema, tonsillar hypertrophy or exudate. Airway patent. NECK: Trachea midline. Non tender CARDIOVASCULAR: Regular rate and rhythm without murmurs, gallops, or rubs. RESPIRATORY: Clear to auscultation. Breath sounds equal bilaterally. No wheezes, rales, or rhonchi. GASTROINTESTINAL: Abdomen soft, non-tender, nondistended. EXTREMITIES: No edema or joint tenderness. BACK: Nontender without deformity or crepitance. No flank tenderness. NEURO: AOx3. SKIN: Mild erythema of bilateral cheeks Initial Vital Signs Initial Vital Signs: Vital Signs Temperature 97.8 F 03/09/22 00:03 Pulse Rate 80 03/09/22 00:03 Respiratory Rate 18 03/09/22 00:03 Blood Pressure 145/74 H 03/09/22 00:03 Pulse Oximetry 100 03/09/22 00:03 Oxygen Delivery Method 03/09/22 00:03 Course Orders Ordered: Discontinued Medications Diphenhydramine HCl (Diphenhydramine 25 Mg Tablet) 25 mg PO NOW ONE Stop: 03/09/22 00:15 Last Admin: 03/09/22 00:19 Dose: 25 mg Documented By: MARCIN Prednisone (Prednisone 20 Mg Tablet) 40 mg PO NOW ONE Stop: 03/09/22 00:16 Last Admin: 03/09/22 00:19 Dose: 40 mg Documented By: MARCIN Vital Signs Vital signs: Vital Signs - 8 hr 03/09/22 00:03 03/09/22 00:30 03/09/22 01:21 Temperature 97.8 F Pulse Rate 80 83 86 Respiratory Rate 18 24 20 Blood Pressure 145/74 H 122/70 Pulse Oximetry 100 98 98 Oxygen Delivery Method Room Air Room Air Room Air MDM - Allergic Reaction MDM Narrative Medical decision making narrative: Patient with very minimal symptoms and no signs of anaphylaxis. She is tolerating liquids, has no difficulty swallowing or breathing. Symptoms did start after receiving IV contrast, which is something that she has received on multiple occasions previously without difficulty. Patient is given antihistamines here in the department but there is no indication for epinephrine. She certainly has no worsening of symptoms over the course of her visit. She is given extensive return precautions and questions answered to her apparent satisfaction Discharge Plan Departure Patient Disposition: Home Clinical Impression: Allergic reaction Instructions: DI for General Allergic Reactions Activity Restrictions/Additional Instructions: *You have been diagnosed with [allergic reaction] *What to do: *Please continue to take your regular medications as directed. [ x] New medication prescriptions sent to your pharmacy: [[facility] in [place] ] [ ] New medication written as a paper prescription [ ] No new medications given *Please consider the routine use of over the counter antihistamines over the next few days 1. H1 blockers: Benadryl (Diphenhydramine), Zyrtec (Cetirizine), Moon (Fexofenadine) or Claritin (Loratadine) along with, 2. H2 blockers: Famotidine or Cimetidine *If you can please avoid what triggered your reaction today *Please follow up with your primary care provider in 2-3 days, call for an appointment. Let them know you were seen in the Emergency Department and that we ask that you be seen in follow up. We will electronically transmit a record of today's note if your PCP is in our system *If you do not have a primary care provider please contact the [facility] Resource line at [phone]. They will ask some questions about your medical history and help get you set up with a doctor in the community. *Return to Emergency Department if you should have any new, worsening or concerning symptoms, such as swelling of tongue, throat, trouble breathing, or other concerning symptoms Prescriptions: New prednisone 20 mg tablet 20 mg PO DAILY Qty: 5 0RF Rx Instructions: administer with food or milk No Action hydrocodone-acetaminophen 5-325 mg tablet 1 tab PO Q4-6H PRN (Reason: pain) Qty: 10 0RF ondansetron 4 mg tablet,disintegrating 4 mg PO TID-QID PRN (Reason: nausea and vomiting) Qty: 10 0RF Referrals: Kennedy Levine DO [Primary Care Provider] - Stand Alone Forms: Work Release Note Visit Report Forms: Patient Portal/API
[2022-03-09 01:21] VITALS: BP 122/70; PULSE 86; RESP 20; O2SAT 98
== END 2022-03-09 01:25 | disposition home or self-care (01) ==
PROVIDERS: Emergency Provider Emergency Medicine; PCP Family Medicine
DX: R11.10 Vomiting, unspecified (principal); T78.40XA Allergy, unspecified, initial encounter; C53.8 Malignant neoplasm of overlapping sites of cervix uteri; R10.31 Right lower quadrant pain; G89.29 Other chronic pain
CPT/HCPCS: 74177; 99283; Q9967

== ENCOUNTER 2022-11-15 03:03 | Emergency (ER) | payer OTHER, SELFPAY ==
[2022-11-15 03:17] VITALS: PULSE 94; RESP 16; TEMP 37.1; O2SAT 99
--- NOTE | 2022-11-15 03:25 | DI.CT.S_ITS ---
PROCEDURE: CT KIDNEY URETER BLADDER (KUB) INDICATIONS: R sided flank pain and hematuria TECHNIQUE: Axial sections were acquired from the lung bases to the pubic symphysis. Coronal and sagittal reformats were performed. For radiation dose reduction, the following was used: automated exposure control, adjustment of mA and/or kV according to patient size. COMPARISON: [facility], CT, CT ABDOMEN PELVIS W CON, 08/08/2020, 21:52. CT, CT ANGIO CHEST PE PROTOCOL, 06/17/2021, 0:24. [facility], CT, CT ABDOMEN PELVIS W CON, 03/08/2022, 11:20. FINDINGS: Image quality: Excellent. Lung bases: There are several lung nodules in the right lower lobe. The largest nodule measures 9 mm (series 3, image 9). There is a 0.4 cm subcsolid nodule in the left base (series 3, image 14). Heart: No significant findings. URINARY: Right Kidney: No stones or hydronephrosis. Right Ureter: No hydroureter. Left Kidney: No stones or hydronephrosis. Left Ureter: No hydroureter. Bladder: Normal wall thickness. No stones. ABDOMEN: Liver: Mild hepatomegaly and moderate hepatic steatosis. Gallbladder: Surgically absent Biliary ducts: Unremarkable. Pancreas: Unremarkable. Spleen: Unremarkable. Adrenal Glands: Unremarkable. Stomach and Bowel: Stomach, small bowel loops, and colon are unremarkable. Normal appendix Peritoneum: No abnormal intraperitoneal fluid. No free air. Ventral Wall: Small fat containing umbilical hernia. Abdominal Nodes: No enlarged retroperitoneal or mesenteric lymph nodes. Vessels: Aorta and inferior vena cava are normal in size. PELVIS: Pelvic Organs: Unremarkable. Pelvic Nodes: Unremarkable. Miscellaneous: No inguinal hernias are seen. Bones: Unremarkable. IMPRESSION: 1. No renal stone or hydronephrosis. 2. Multiple lung nodules bilaterally, predominantly in the right lower lobe, measuring up to 9 mm. An infectious or inflammatory process is favored, but neoplasm is not excluded. Recommend clinical correlation and a short-term follow-up chest CT in 3 months. 3. Mild hepatomegaly and moderate hepatic steatosis. No significant discrepancy with the fuel cell technician radiology preliminary report. Dictated by: Toro Anderson M.D. on 11/15/2022 at 8:04 Approved by: Toro Anderson M.D. on 11/15/2022 at 8:12
--- NOTE | 2022-11-15 03:26 | ED.GENADULT ---
HPI - General Adult General Chief complaint: Urogenital-Female Stated complaint: peeing blood Time Seen by Provider: 11/15/22 03:06 Source: patient Mode of arrival: Ambulatory History of Present Illness HPI narrative: Patient is a 37-year-old female. Has a history of cervical cancer. Has had a radical hysterectomy. Is currently in just the maintenance phase for treatment. Follows with oncology every 3 months. She states that she has been having right-sided back and flank pain for the past couple weeks. She is seen a chiropractor and was told that it was muscular in origin. She states that last night she went to urinate. She noticed that there was some blood in the toilet. It was not painful for her to urinate. She then went back to get into bed within realize very quickly afterwards she had to go and urinate again. She also states she is been doing this multiple times since the onset. She is having some burning with urination. Is having Frequency. Having some hesitancy. No prior history of kidney stones. Related Data Previous Rx's Medication Instructions Recorded hydrocodone 5 mg-acetaminophen 325 1 tab PO Q4-6H PRN pain #10 tabs 09/16/20 mg tablet ondansetron 4 mg disintegrating 4 mg PO TID-QID PRN nausea and 09/16/20 tablet vomiting #10 tabs prednisone 20 mg tablet 20 mg PO DAILY #5 tabs 03/09/22 cephalexin 500 mg capsule 500 mg PO BID 5 days #10 caps 11/15/22 phenazopyridine 100 mg tablet 100 mg PO TID PRN pain 6 doses #6 11/15/22 (Pyridium) tabs Allergies Allergy/AdvReac Type Severity Reaction Status Date / Time No Known Drug Allergies Allergy Verified 08/08/20 20:17 Review of Systems Constitutional Constitutional: Reports system reviewed and no additional complaints, except as documented Gastrointestinal Gastrointestinal: Reports system reviewed and no additional complaints, except as documented Genitourinary Genitourinary: Reports system reviewed and no additional complaints, except as documented Integumentary/Breasts Skin/Breast: Reports system reviewed and no additional complaints, except as documented Neurologic Neurologic: Reports system reviewed and no additional complaints, except as documented Patient History Social History Smoking Status: Never smoker Smoking Status: Never smoker alcohol intake frequency: 0-2 drinks per day Substance Use Type: does not use Exam Initial Vital Signs Initial Vital Signs: Vital Signs Temperature 98.8 F 11/15/22 03:17 Pulse Rate 94 H 11/15/22 03:17 Respiratory Rate 16 11/15/22 03:17 Pulse Oximetry 99 11/15/22 03:17 Oxygen Delivery Method Room Air 11/15/22 03:17 HENMT Head: normal to inspection and normocephalic Cardio Rate: regular rate GI Inspection: non-distended Neuro General: patient alert, patient awake and moves all extremities Extrem General: normal to inspection Course Orders Ordered: ED Orders 11/15/22 03:18 Urinalysis and Microscopic Stat Urine Culture Stat 11/15/22 03:25 CT kidney ureter bladder (KUB) Stat Discontinued Medications Ketorolac Tromethamine (Ketorolac 30 Mg/Ml Vial) 30 mg IV NOW ONE Stop: 11/15/22 03:58 Last Admin: 11/15/22 04:13 Dose: 30 mg Documented By: BS Vital Signs Vital signs: Vital Signs - 8 hr 11/15/22 03:17 Temperature 98.8 F Pulse Rate 94 H Respiratory Rate 16 Pulse Oximetry 99 Oxygen Delivery Method Room Air Medical Decision Making Lab Data Lab results reviewed: Yes I reviewed the patient's lab results. Labs: Lab Results 11/15/22 Range/Units 03:18 Urine Color Red Urine Appearance Cloudy Urine pH 7.5 (4.5-8.0) Ur Specific [place] 1.015 (1.000-1.035) Urine Protein 3+ H (Negative) Urine Glucose (UA) Trace H (Negative) g/dL Urine Ketones Not Reportable Urine Occult Blood 3+ H (Negative) Urine Nitrate Not Reportable Urine Bilirubin Negative (NEGATIVE) Urine Urobilinogen 2.0 H (0.2) E.U./dL Ur Leukocyte Esterase 2+ H (NEGATIVE) Urine RBC >100/hpf H (0-5/HPF) Urine WBC 30-100/hpf H (0-5/HPF) Ur Squamous Epith Cells None seen (0-5/HPF) Urine Bacteria Few (2-10) H (None) Ur Culture Indicated? Specimen cultured Micro UA Comment * Imaging Data CT scan - abdomen/pelvis: Radiologist's Impression: Few subcentimeter nodular densities in the right lower lobe not seen on prior study. Nonspecific could be related to inflammatory, a typical infectious, or even neoplastic process. No renal calculi or hydronephrosis MDM Narrative Medical decision making narrative: Patient is having hematuria. She does have bacteria and white blood cells in her urine and she is having other urinary symptoms consistent with a urinary tract infection. Because of this we will treat her with antibiotics. A urine culture was pending at the time of discharge she was informed that we would call her if we need to change any these antibiotics. She was given 1st dose here in the emergency department a prescription was sent to the pharmacy of her choice. We also discussed the nodular densities in her right lung. Given her history of cervical cancer this absolutely needs follow-up. Recommend that she contact her primary doctor for this and even contact her oncologist. Also informed her that she does need follow-up with her primary doctor once her hematuria/UTI symptoms have resolved to be sure that she no longer is having any hematuria. She expressed understanding and agreement with plan. Discharge Plan Departure Patient Disposition: Home Clinical Impression: Hematuria, Urinary tract infection, Lung nodule Instructions: DI for Urinary Tract Infection (UTI), DI for Hematuria Activity Restrictions/Additional Instructions: A prescription for antibiotics was sent to the pharmacy of your choice. Please take them as directed. Also recommend that once your urinary tract infection has been treated in your symptoms have resolved that you follow-up with your primary doctor to have a repeat urinalysis to make sure that you are no longer having any blood in your urine. We also had the incidental findings of the pulmonary nodules noted on the CT scan. Given your history it is important that you have follow-up with this. You can either talk with your primary doctor or your oncologist for further evaluation. Return to the emergency department for new or worsening symptoms. Prescriptions: New cephalexin 500 mg capsule 500 mg PO BID 5 Days Qty: 10 0RF phenazopyridine [Pyridium] 100 mg tablet 100 mg PO TID PRN (Reason: pain) Qty: 6 0RF No Action hydrocodone-acetaminophen 5-325 mg tablet 1 tab PO Q4-6H PRN (Reason: pain) Qty: 10 0RF ondansetron 4 mg tablet,disintegrating 4 mg PO TID-QID PRN (Reason: nausea and vomiting) Qty: 10 0RF prednisone 20 mg tablet 20 mg PO DAILY Qty: 5 0RF Rx Instructions: administer with food or milk Referrals: Kennedy Levine DO [Primary Care Provider] - Stand Alone Forms: Patient Portal/API
[2022-11-15 03:58] LABS: Glucose Urine UA TRACE g/dL (Negative); Leukocyte Esterase Urine UA 2+ (NEGATIVE); Occult Blood Urine UA 3+ (Negative); Protein Urine UA 3+ (Negative); Specific Gravity Urine UA 1.015 (1.000-1.035)
[2022-11-15 04:07] LABS: Appearance Urine UA Cloudy; Color Urine UA RED; pH Urine UA 7.5 (4.5-8.0)
[2022-11-15 04:08] LABS: Bilirubin Urine UA Negative (NEGATIVE)
[2022-11-15] MEDS: KETOROLAC 30 MG/ML VIAL IV (04:13)
[2022-11-15 04:14] LABS: RBC Urine >100/HPF (0-5/HPF)
[2022-11-15 04:15] LABS: Bacteria Urine Few (2-10); Culture Indicated Urine Specimen Cultured; Squamous Epithelial Cell Urine None Seen (0-5/HPF); WBC Urine 30-100/HPF (0-5/HPF)
[2022-11-15] MEDS: HYDROCODONE/ACET 5/325 PREPACK 1 BOTTLE MISC (05:00)
[2022-11-15] MEDS: cephALEXin 250 MG CAPSULE 500 MG PO (05:00)
[2022-11-15] MEDS: PHENAZOPYRIDINE 100 MG TABLET PO (05:01)
[2022-11-15 05:07] VITALS: BP 118/56; PULSE 84; RESP 16; TEMP 37.1; O2SAT 95
== END 2022-11-15 05:09 | disposition home or self-care (01) ==
PROVIDERS: Emergency Provider Emergency Medicine; PCP Family Medicine
DX: N39.0 Urinary tract infection, site not specified (principal); R31.9 Hematuria, unspecified; R91.1 Solitary pulmonary nodule
CPT/HCPCS: 36415; 51798; 74176; 81001; 87077; 87086; 87186; 96374; 99284; J1885

== ENCOUNTER 2023-02-06 16:36 | Emergency (ER) | payer OTHER, SELFPAY ==
[2023-02-06] VITALS (9 sets, daily range): BP systolic 114–147; BP diastolic 66–84; PULSE 76–88; RESP 20–22; TEMP 36.6; O2SAT 97–99; BMI 46.0
--- NOTE | 2023-02-06 17:09 | DI.RAD.S_ITS ---
PROCEDURE: XR CHEST 1V INDICATIONS: chest pain TECHNIQUE: One view of the chest was acquired. COMPARISON: [facility], CR, XR CHEST 1V, 06/16/2021, 23:33. FINDINGS: Surgical changes and devices: None. Lungs and pleura: Lungs are clear. No pleural effusions or pneumothorax. Mediastinum: Mediastinal contours appear normal. Heart size is normal. Bones and chest wall: No suspicious bony lesions. Overlying soft tissues appear unremarkable. IMPRESSION: Portable chest within normal limits for age. Dictated by: Joslyn Son M.D. on 02/06/2023 at 19:03 Approved by: Joslyn Son M.D. on 02/06/2023 at 19:03
[2023-02-06 17:28] LABS: INR 1.1 (0.9-1.3); Prothrombin Time 12.7 SECONDS (10.1-12.7)
[2023-02-06 17:30] LABS: PTT Partial Thromboplastin Tim 35 SECONDS (26-36)
[2023-02-06 17:31] LABS: Add Manual Diff / Slide Review NO; Basophils Absolute Auto 100 /uL (0-100); Basophils Percent Auto 0.8 % (0-2); Eosinophils Absolute Auto 200 /uL (0-450); Eosinophils Percent Auto 1.7 % (2-4); Hematocrit 40.6 % (36-46); Hemoglobin 13.6 g/dL (12.0-16.0); Lymphocytes Absolute Auto 3000 /uL (1100-4500); Lymphocytes Percent Auto 24.2 % (25-40); Mean Corpuscular HGB Conc 33.5 % (30-36); Mean Corpuscular Hemoglobin 28.1 PG (26-34); Monocytes Absolute Auto 800 /uL (0-900); Monocytes Percent Auto 6.5 % (3-14); Neutrophils Absolute Auto 8100 /uL (1500-7000); Neutrophils Percent Auto 66.8 % (50-75); Platelet Count 308 X10^3/uL (150-400); Red Blood Cell Count 4.83 X10^6/uL (4.0-5.2); Red Cell Distribution Width 14.3 % (11.6-14.8); White Blood Cell Count 12.2 X10^3/uL (4.5-11.0)
[2023-02-06 17:34] LABS: Alanine Aminotransferase 39 IU/L (<35); Albumin 4.3 g/dL (3.5-5.0); Albumin Globulin Ratio 1.1 (1.0-2.8); Alkaline Phosphatase 85 U/L (38-126); Aspartate Aminotransferase 29 IU/L (14-36); BUN Creatinine Ratio 15.3 (6-22); Bilirubin Total 0.3 mg/dL (0.2-1.3); Blood Urea Nitrogen 11 mg/dL (7-17); Calcium 9.9 mg/dL (8.4-10.2); Carbon Dioxide 30 mmol/L (22-32); Chloride 99 mmol/L (98-107); Creatine Kinase 49 U/L (30-135); Estimated Glomerular Filt Rate > 60 mL/min (>60); Glucose 139 mg/dL (70-100); HEMOLYSIS < 15 (0-50); Lipase 133 U/L (23-300); Potassium 4.2 mmol/L (3.4-5.1); Sodium 137 mmol/L (137-145); Total Protein 8.3 g/dL (6.3-8.2)
[2023-02-06 17:46] LABS: Troponin I < 0.012 ng/mL (0.01-0.034)
--- NOTE | 2023-02-06 20:14 | ED.CHESTPAIN ---
HPI - Chest Pain General Chief Complaint: Chest Pain Stated Complaint: CHEST PAIN Time Seen by Provider: 02/06/23 19:49 Source: patient and family Mode of arrival: Ambulatory Limitations: no limitations History of Present Illness HPI narrative: 37-year-old female nonsmoker with history of ovarian cancer presents with right-sided chest pain that radiates into the right side of her back she states the symptoms have been present for the past day or 2 and seemed to be made worse when she moves or takes a deep breath. She started feeling poorly earlier today overall and feels generally unwell. She is not dizzy or lightheaded but feels weak and fatigued. She is had no vomiting but occasionally is nauseated. She did have a temperature as high as 103? a few days ago. She denies diarrhea or constipation. She denies any dysuria, frequency or urgency. Related Data Previous Rx's Medication Instructions Recorded hydrocodone 5 mg-acetaminophen 325 1 tab PO Q4-6H PRN pain #10 tabs 09/16/20 mg tablet ondansetron 4 mg disintegrating 4 mg PO TID-QID PRN nausea and 09/16/20 tablet vomiting #10 tabs prednisone 20 mg tablet 20 mg PO DAILY #5 tabs 03/09/22 phenazopyridine 100 mg tablet 100 mg PO TID PRN pain 6 doses #6 11/15/22 (Pyridium) tabs doxycycline hyclate 100 mg tablet 100 mg PO BID #20 tabs 02/06/23 Allergies Allergy/AdvReac Type Severity Reaction Status Date / Time No Known Drug Allergies Allergy Verified 02/06/23 17:08 Review of Systems Review of Systems Narrative: GENERAL: Denies chills, fatigue, malaise, fever, sweats. HEENT: Denies sinus pain, ear pain, sore throat, difficulty swallowing, dizziness. RESPIRATORY: Denies dyspnea, cough, wheezing, hemoptysis, sputum. CARDIOVASCULAR: See HPI GASTROINTESTINAL: See HPI : Denies dysuria, frequency, incontinence, hematuria, urinary retention. MUSCULOSKELETAL: denies weakness, joint pain, or bony pain SKIN: Denies rash, skin lesions, or other NEUROLOGIC: Denies weakness, headache, numbness, change in speech, confusion, seizures, incoordination. PSYCHIATRIC: No concerning psychosocial issues. 12 point review of systems is negative except for those stated above Patient History Social History Smoking Status: Never smoker Smoking Status: Never smoker alcohol intake frequency: 0-2 drinks per day Substance Use Type: does not use Exam Narrative Exam Narrative: GENERAL: [37] year old patient appears stated age. Well-developed patient, in mild distress. HEAD: Atraumatic. Normocephalic. EYES: Pupils equal round and reactive. Extraocular motions intact. No scleral icterus. No injection or drainage. ENT: Nose without bleeding, purulent drainage. Throat without erythema, tonsillar hypertrophy or exudate. Airway patent. NECK: Trachea midline. Non tender CARDIOVASCULAR: Regular rate and rhythm without murmurs, gallops, or rubs. Reproducible tenderness to palpation underneath right breast RESPIRATORY: Clear to auscultation. Breath sounds equal bilaterally. No wheezes, rales, or rhonchi. GASTROINTESTINAL: Abdomen soft, non-tender, nondistended. EXTREMITIES: No edema or joint tenderness. BACK: Nontender without deformity or crepitance. No flank tenderness. NEURO: AOx3. SKIN: No rash or erythema of visible areas Initial Vital Signs Initial Vital Signs: Vital Signs Temperature 98 F 02/06/23 17:00 Pulse Rate 80 02/06/23 17:00 Respiratory Rate 20 02/06/23 17:00 Blood Pressure 130/75 02/06/23 17:00 Pulse Oximetry 98 02/06/23 17:00 Oxygen Delivery Method Room Air 02/06/23 17:00 Scores HEART Score Heart Score history: Slightly Suspicious Heart Score EKG: Normal Heart Score Age: < 45 years old Heart Score risk factors: No known risk factors Heart Score troponin: < or = to normal limit Heart Score Total: 0 Course Orders Ordered: ED Orders 02/06/23 20:59 CT angio chest PE protocol Stat Discontinued Medications Sodium Chloride (Normal Saline 0.9%) 1,000 mls @ 1,000 mls/hr IV BOLUS ONE Stop: 02/06/23 21:58 Last Infusion: 02/06/23 22:39 Dose: 0 mls/hr Documented By: Admin: 02/06/23 21:06 Dose: 1,000 mls/hr Documented By: ADÁN Vital Signs Vital signs: Vital Signs - 8 hr 02/06/23 21:30 02/06/23 21:30 02/06/23 21:31 Pulse Rate 88 Respiratory Rate 22 Blood Pressure 147/84 H 134/75 Pulse Oximetry 99 Oxygen Delivery Method Room Air 02/06/23 21:31 02/06/23 22:00 02/06/23 22:00 Pulse Rate 88 85 Respiratory Rate 21 20 Blood Pressure 114/66 Pulse Oximetry 98 97 Oxygen Delivery Method Room Air MDM - Chest Pain Lab Data 02/06/23 17:05 02/06/23 17:05 Labs: Lab Results 02/06/23 02/06/23 02/06/23 Range/Units 17:05 17:05 17:05 WBC 12.2 H (4.5-11.0) X10^3/uL RBC 4.83 (4.0-5.2) X10^6/uL Hgb 13.6 (12.0-16.0) g/dL Hct 40.6 (36-46) % MCV 84.0 (80-100) fL MCH 28.1 (26-34) PG MCHC 33.5 (30-36) % RDW 14.3 (11.6-14.8) % Plt Count 308 (150-400) X10^3/uL Neut % (Auto) 66.8 (50-75) % Lymph % (Auto) 24.2 L (25-40) % [place] % (Auto) 6.5 (3-14) % Eos % (Auto) 1.7 L (2-4) % Baso % (Auto) 0.8 (0-2) % Neut # (Auto) 8100 H (8805-8092) /uL Lymph # (Auto) 3000 (2351-7701) /uL [place] # (Auto) 800 (0-900) /uL Eos # (Auto) 200 (0-450) /uL Baso # (Auto) 100 (0-100) /uL PT 12.7 (10.1-12.7) SECONDS INR 1.1 (0.9-1.3) APTT 35 (26-36) SECONDS D-Dimer (<500) ng/ml Sodium 137 (137-145) mmol/L Potassium 4.2 (3.4-5.1) mmol/L Chloride 99 (98-107) mmol/L Carbon Dioxide 30 (22-32) mmol/L BUN 11 (7-17) mg/dL Creatinine 0.72 (0.52-1.04) mg/dL Estimated GFR > 60 (>60) mL/min BUN/Creatinine Ratio 15.3 (6-22) Glucose 139 H (70-100) mg/dL Calcium 9.9 (8.4-10.2) mg/dL Magnesium 2.0 (1.6-2.3) mg/dL Total Bilirubin 0.3 (0.2-1.3) mg/dL AST 29 (14-36) IU/L ALT 39 H (<35) IU/L Alkaline Phosphatase 85 (38-126) U/L Total Creatine Kinase 49 (30-135) U/L Troponin I < 0.012 (0.01-0.034) ng/mL Total Protein 8.3 H (6.3-8.2) g/dL Albumin 4.3 (3.5-5.0) g/dL Globulin 4.0 (1.7-4.1) g/dL Albumin/Globulin Ratio 1.1 (1.0-2.8) Lipase 133 (23-300) U/L 02/06/23 02/06/23 Range/Units 20:09 20:09 WBC (4.5-11.0) X10^3/uL RBC (4.0-5.2) X10^6/uL Hgb (12.0-16.0) g/dL Hct (36-46) % MCV (80-100) fL MCH (26-34) PG MCHC (30-36) % RDW (11.6-14.8) % Plt Count (150-400) X10^3/uL Neut % (Auto) (50-75) % Lymph % (Auto) (25-40) % [place] % (Auto) (3-14) % Eos % (Auto) (2-4) % Baso % (Auto) (0-2) % Neut # (Auto) (5330-5417) /uL Lymph # (Auto) (3174-7121) /uL [place] # (Auto) (0-900) /uL Eos # (Auto) (0-450) /uL Baso # (Auto) (0-100) /uL PT (10.1-12.7) SECONDS INR (0.9-1.3) APTT (26-36) SECONDS D-Dimer 472 (<500) ng/ml Sodium (137-145) mmol/L Potassium (3.4-5.1) mmol/L Chloride (98-107) mmol/L Carbon Dioxide (22-32) mmol/L BUN (7-17) mg/dL Creatinine (0.52-1.04) mg/dL Estimated GFR (>60) mL/min BUN/Creatinine Ratio (6-22) Glucose (70-100) mg/dL Calcium (8.4-10.2) mg/dL Magnesium (1.6-2.3) mg/dL Total Bilirubin (0.2-1.3) mg/dL AST (14-36) IU/L ALT (<35) IU/L Alkaline Phosphatase (38-126) U/L Total Creatine Kinase 35 (30-135) U/L Troponin I < 0.012 (0.01-0.034) ng/mL Total Protein (6.3-8.2) g/dL Albumin (3.5-5.0) g/dL Globulin (1.7-4.1) g/dL Albumin/Globulin Ratio (1.0-2.8) Lipase (23-300) U/L Urine Dip Bedside Urine Glucose Negative Bedside Urine Bilirubin - Negative Bedside Urine Ketone - Negative Urine Specific [place] 1.010 Bedside Urine Occult Blood - Negative Bedside Urine pH 6.5 Bedside Urine Protein - Negative Bedside Urine Urobilinogen - Negative Bedside Urine Nitrite - Negative Bedside Urine Leukocytes - Negative Esterase MDM Narrative Medical decision making narrative: CC: 37F with right-sided sharp and stabbing chest pain and cough Complicating co-morbidities: Prior ovarian and cervical cancer Data collected from: Patient Medical records reviewed: Prior notes reviewed in our EMR Differential considered, but not limited to: Cardiac ischemia versus pneumonia versus pulmonary embolism versus other Exam documented above, pertinent findings include: Reproducible sharp and stabbing chest pain in the right lower lung chest wall as well as right upper quadrant area, abdomen soft, lungs clear, heart rate regular Lab Test results independently reviewed as above. Pertinent findings: Slight leukocytosis of 12.2, actually improved over prior, no signs of anemia or left shift. D-dimer 472, chemistries including troponin x2 are negative Independently reviewed EKG as above Imaging studies independently reviewed: CT angiogram of the chest without evidence of pulmonary embolism or pneumonia Scores Used: HEART Re-evaluations: Patient resting comfortably, no significant active pain or evidence of increased work of breathing Discussion: Patient presents with family in the complaint of sharp and stabbing right-sided chest pain with cough and fever. Multiple diagnoses considered as noted above. No evidence of pneumonia on imaging, no fever here, cardiac ischemia considered but EKGs nonischemic, heart score is low, troponin negative x2. Pulmonary embolism considered and pursued with CT angiogram even despite D-dimer being slightly below the cutoff given her history of cancer, hemoptysis and pleuritic-type chest pain. Given fever and productive cough we will treat for atypical pneumonia. She demonstrates no significant work of breathing, no use of accessory muscles or hypoxemia, no indication for admission Disposition: see below, along with detailed discharge instructions that have been reviewed with patient as well as indications for ED re-evaluation and additional outpatient follow up Discharge Plan Departure Patient Disposition: Home Clinical Impression: Atypical chest pain, Atypical pneumonia Instructions: DI for Atypical Chest Pain, DI for Atypical Pneumonia Activity Restrictions/Additional Instructions: *You have been diagnosed with [atypical pneumonia. As we discussed your history and physical exam are reassuring as are labs and imaging. There is no evidence of a blood clot, heart attack or a large classic pneumonia *What to do: *Please continue to take your regular medications as directed. [ X] New medication prescriptions sent to your pharmacy: [[facility] ] [ ] New medication written as a paper prescription [ ] No new medications given *Please follow up with your primary care provider in 2-3 days, call for an appointment. Let them know you were seen in the Emergency Department and that we ask that you be seen in follow up. We will electronically transmit a record of today's note if your PCP is in our system *If you do not have a primary care provider please contact the [facility] Resource line at [phone]. They will ask some questions about your medical history and help get you set up with a doctor in the community. *Return to Emergency Department if you should have any new, worsening or concerning symptoms, such as [fever greater than 101 F, shaking chills, worsening pain, persistent vomiting or other bothersome symptoms] Prescriptions: New doxycycline hyclate 100 mg tablet 100 mg PO BID Qty: 20 0RF No Action hydrocodone-acetaminophen 5-325 mg tablet 1 tab PO Q4-6H PRN (Reason: pain) Qty: 10 0RF ondansetron 4 mg tablet,disintegrating 4 mg PO TID-QID PRN (Reason: nausea and vomiting) Qty: 10 0RF prednisone 20 mg tablet 20 mg PO DAILY Qty: 5 0RF Rx Instructions: administer with food or milk phenazopyridine [Pyridium] 100 mg tablet 100 mg PO TID PRN (Reason: pain) Qty: 6 0RF Referrals: Kennedy Levine DO [Primary Care Provider] - Stand Alone Forms: Patient Portal/API
[2023-02-06 20:35] LABS: D Dimer 472 ng/ml (<500)
[2023-02-06 20:38] LABS: Creatine Kinase 35 U/L (30-135)
[2023-02-06 20:51] LABS: Troponin I < 0.012 ng/mL (0.01-0.034)
--- NOTE | 2023-02-06 20:59 | DI.CT.S_ITS ---
P the ROCEDURE: CT ANGIO CHEST PE PROTOCOL INDICATIONS: right chest pain, hemoptysis TECHNIQUE: After the administration of intravenous contrast, 2 mm thick sections acquired from the pulmonary apices to the posterior costophrenic angles. 3-dimensional maximum intensity projection (MIP) coronal and sagittal reformats were then acquired through the thorax. For radiation dose reduction, the following was used: automated exposure control, adjustment of mA and/or kV according to patient size. COMPARISON: [facility], CT, CT ANGIO CHEST PE PROTOCOL, 06/17/2021, 0:24. FINDINGS: Pulmonary arteries: There is markedly suboptimal enhancement of the pulmonary arteries with nondiagnostic evaluation for pulmonary embolism. Pulmonary arteries are normal in size. Lower Neck: No lymphadenopathy by size criteria. Thyroid: Visualized thyroid demonstrates no discrete nodules. Axillae: No lymphadenopathy by size criteria. Chest Wall: Unremarkable. Bones: Visualized osseous structures demonstrate no suspicious lesions. Lungs and Airways: No acute consolidation. There is minimal dependent atelectasis. There is nodular thickening along the left major fissure measuring 0.5 cm on series 8, image 105 suggestive of an intrapulmonary lymph node. The trachea and central airways are patent. Pleura: No pneumothorax or pleural effusions. Heart: Heart size is normal. No pericardial effusion. Thoracic Vessels: The thoracic aorta is normal in size. Mediastinum and [place]: No lymphadenopathy by size criteria. Esophagus: No wall thickening. No hiatal hernia. Abdomen: Visualized upper abdominal solid organs appear normal in the early arterial phase of enhancement. IMPRESSION: 1. Nondiagnostic study for pulmonary embolism. 2. No acute airspace consolidation. Dictated by: Thierry Quinteros M.D. on 02/06/2023 at 22:01 Approved by: Thierry Quinteros M.D. on 02/06/2023 at 22:20
[2023-02-06] MEDS: SODIUM CHLORIDE 0.9% 1,000 ML 1000 ML IV (21:06)
== END 2023-02-06 22:35 | disposition home or self-care (01) ==
PROVIDERS: Emergency Medicine; Emergency Provider Emergency Medicine; PCP Family Medicine
DX: J18.9 Pneumonia, unspecified organism (principal); R07.89 Other chest pain
CPT/HCPCS: 36415; 71045; 71275; 80053; 81003; 82550; 83690; 83735; 84484; 85025; 85379; 85610; 85730; 93005; 93010; 99284; Q9967

== ENCOUNTER → 2023-08-06 16:52 | Outpatient (CLI) | payer OTHER, SELFPAY ==
--- NOTE | 2023-08-06 | DI.MRI.S_ITS ---
PROCEDURE: MR SHOULDER RT WO CON INDICATIONS: Other specified joint disorders, right shoulder TECHNIQUE: Noncontrast oblique coronal T2 fast spin echo with fat saturation, oblique sagittal T1 spin echo and T2 fast spin echo with fat saturation, axial T1 spin echo and T2 fast spin echo with fat saturation through the shoulder. COMPARISON: None. FINDINGS: Image quality: Excellent. Rotator cuff: Low-grade articular and bursal surface partial thickness tear involving distal supraspinatus at its insertion on the humeral head is seen extending to musculotendinous junction. Distal infraspinatus and subscapularis tendinosis is seen. No full-thickness rotator cuff tendon rupture. Sagittal images demonstrate no significant rotator cuff muscle atrophy. Bones and bursae: No bone marrow contusions or fractures. Mild acromioclavicular joint osteoarthritic changes are seen with joint space narrowing and downward osteophyte formation depressing on musculotendinous junction of supraspinatus. The acromion demonstrates conventional anatomy, without an os acromiale. No pathologic subacromial-subdeltoid or subcoracoid bursal fluid is present. Capsule and soft tissues: Subtle fraying of superior anterior labrum with T2 hyperintense signal extending from 12-1 o'clock position suggestive of subtle superior anterior labral tear. The long head of the biceps tendon demonstrates normal location and morphology. The rotator interval appears normal, without fibrosis. The coracohumeral ligament is normal in thickness. IMPRESSION: 1. Low-grade articular and bursal surface partial thickness tear involving distal supraspinatus extending to musculotendinous junction. Distal infraspinatus and subscapularis tendinosis. No full-thickness rotator cuff tendon rupture. 2. Mild acromioclavicular joint osteoarthritis. No fracture or dislocation. No significant joint effusion or subacromial subdeltoid bursal fluid. 3. Suggestion of subtle superior anterior labral tear at 12 to 1 o'clock position. Dictated by: Randy Rader M.D. on 08/07/2023 at 8:48 Approved by: Randy Rader M.D. on 08/07/2023 at 8:56
== END ==
PROVIDERS: PCP Family Medicine; Referring Provider Orthopaedic Surgery; Visit Provider Orthopaedic Surgery
DX: M75.111 Incomplete rotator cuff tear or rupture of right shoulder, not specified as traumatic (principal); M19.011 Primary osteoarthritis, right shoulder; M25.811 Other specified joint disorders, right shoulder
CPT/HCPCS: 73221